=== PATIENT | male | born 1940 | race Caucasian/White ===

== ENCOUNTER 2024-06-15 20:03 | Emergency (ER) | payer OTHER, SELFPAY ==
[2024-06-15 20:10] VITALS: BP 153/59; PULSE 75; RESP 18; TEMP 36.6; O2SAT 100; BMI 23.9
--- NOTE | 2024-06-15 20:30 | EDS_ITS ---
HPI History of Present Illness Chief Complaint: Complaint Detail of Chief Complaint: Blocked Duarte catheter Informant: patient and family Narrative Narrative: Patient presents to the emergency department with a blocked Duarte catheter that he noted today. Patient states that he has a chronic indwelling Duarte and this 1 he has had for about 2 to 3 weeks. He had a TURP in December of this year and he has had Duarte catheters from time to time. Patient has history of prostate cancer. Today he has had some leakage around the catheter. His catheter has been blocked from time to time. Patient otherwise feels well. He denies any fevers or chills or sweats. He describes a mild pressure in the suprapubic region PFSH PFSH Allergy/AdvReac Type Severity Reaction Status Date / Time ciprofloxacin Allergy PT UNSURE Verified 06/15/24 20:09 OF REACTION clarithromycin (From Biaxin) Allergy PT UNSURE Verified 06/15/24 20:09 OF REACTION Penicillins Allergy Hives Verified 06/15/24 20:09 Surgical History (Updated 06/15/24 @ 20:24 by Manda Mcdonnell) S/P TURP Social History Smoking Status: Never smoker ROS ROS ED Review of Systems ROS Unobtainable: other Constitutional Constitutional ED: Reports lethargy; Denies chills, fever(s), sweats or weight loss Eyes Eyes: Denies blurry vision, change in vision or diplopia ENT ENT ED: Denies rhinorrhea or sore throat Cardiovascular Cardiovascular: Reports chest pain; Denies orthopnea or racing heartbeat Respiratory/Chest Respiratory/Chest: Denies cough, dyspnea, dyspnea on exertion, orthopnea or sputum Gastrointestinal Gastrointestinal: Denies abdominal pain, diarrhea, nausea or vomiting Genitourinary Genitourinary ED: Reports other Details: Blocked Duarte catheter ; Denies dysuria, hematuria or urinary frequency Musculoskeletal Musculoskeletal: Denies arthralgias, back pain, myalgias or neck pain Integumentary Denies abscess, Abrasions or rash Neurologic Neurologic: Denies headache(s) or weakness Psychiatric Psychiatric: Denies anxiety, depression or suicidal thoughts Endocrine Endocrinology: Denies polydipsia, polyphagia or polyuria Hematologic/Lymphatic Hematologic/Lymphatic: Denies easy bleeding, easy bruising or lymphadenopathy Allergic/Immunologic Allergic/Immunologic ED: Denies mouth swelling, tongue swelling or urticaria EXAM Physical Exam Const Vital Signs: 06/15/24 20:10 Temperature 97.8 F Temperature Source Temporal Pulse Rate 75 Respiratory Rate 18 Blood Pressure 153/59 H Blood Pressure Mean 90 Pulse Ox 100 Oxygen Delivery Method Room Air Positive well nourished and well developed General Appearance ED: well developed and NAD HEENT Reports TM's clear and moist mucous membranes normocephalic and atraumatic; Negative for trauma or tenderness Tympanic Membrane ED: Yes TM's clear Eyes PERRL and EOMs intact bilaterally General Eye ED: Negative for pale conjunctiva or scleral icterus Neck no lymphadenopathy, supple and no JVD General: Negative for tenderness Chest Wall inspection of chest normal and palpation of chest normal Chest: Negative for tenderness Resp normal respiratory effort and clear to auscultation bilaterally Effort and Inspection: Negative for respiratory distress or pain with movement Auscultation: Negative for rhonchi, wheezes or diminished lung sounds Cardio regular rate, regular rhythm, S1 normal heart sound, S2 normal heart sound and no murmurs Peripheral Pulses: pulses 2+ throughout GI normal to inspection, nondistended, normoactive bowel sounds, soft to palpation, non-tender, non-distended and no masses Narrative: Patient has a Duarte catheter in place transurethral. Patient has minimal amount of bloody urine in the bag. Back/Spine no CVA tenderness and no thoracic nor lumbar tenderness Extremity normal to inspection General Extremety ED: Negative for edema General Extremity: Negative for edema Neuro oriented x3, CN's II-XII intact bilaterally, no sensory deficits noted and gait normal Sensorium / Orientation: awake, alert, oriented to person, oriented to place and oriented to time Motor Exam: strength 5/5 throughout and strength abnormal Psych mental status grossly normal Skin no rashes or lesions noted and no wounds MDM MDM MDM Narrative Medical decision making narrative: Patient presents with a clogged Duarte catheter. We had the nursing staff flush the catheter and it was able to flush and irrigate without difficulty. Patient will be discharged to home. He is comfortable with plan. Patient is stage IV cancer and essentially receiving palliative care. Advised to return if unable to urinate or catheter is not draining or he leaks around the catheter. Discharged home stable condition. Discharge Plan Triage Chief Complaint: Complaint ED Provider: Dominic Castillo Dx/Rx/DC Orders Clinical Impression: Complication, blocked Duarte catheter Instructions: ED Duarte Catheter, Care, ED Urinary Retention, Male [facility] Provider[facility] Referrals: Roscoe Colindres MD [Non-Staff] - Activity Restrictions/Additional Instructions: Follow-up with your urologist at earliest convenience. Print Language: Wallisian Disposition Disposition: Home, Self Care
[2024-06-15 21:35] VITALS: BP 125/70; PULSE 74; RESP 15; TEMP 36.8; O2SAT 99
== END 2024-06-15 21:36 | disposition home or self-care (01) ==
PROVIDERS: Emergency Provider Emergency Medicine; Visit Provider Emergency Medicine
DX: T83.091A Other mechanical complication of indwelling urethral catheter, initial encounter (principal); C61 Malignant neoplasm of prostate; Z51.5 Encounter for palliative care; Z88.1 Allergy status to other antibiotic agents; Z88.0 Allergy status to penicillin
CPT/HCPCS: 99282; A4216

== ENCOUNTER 2024-06-25 14:34 | Inpatient (IN) | payer OTHER, SELFPAY ==
[2024-06-25] VITALS (10 sets, daily range): BP systolic 136–157; BP diastolic 54–63; PULSE 60–72; RESP 16–21; TEMP 36.4–37; O2SAT 98–100; BMI 23.1; BMI 20.5
--- NOTE | 2024-06-25 17:33 | EX.ED.DYSGE1 ---
HPI History of Present Illness Chief Complaint: Complaint Informant: patient and family Narrative Narrative: Patient is an 83-year-old male with history of metastatic prostate cancer, BPH status post TURP and December of this year, indwelling Duarte catheter secondary to urinary retention, UTIs and hyponatremia (chronically around 123-125 on salt pills) presenting with hematuria and decreased urine production. Patient switched to his leg bag this morning and noticed that there was not much urine coming out. Is also noticed was grossly bloody. Started feel pressure like urine is building up but not draining. Denies any other complaints or concerns at this time. Since last hospitalization has been living with family member and overall been doing well. [facility] Is on Eliquis. No other complaints or concerns reported at this time. PFSH PFSH Home Medications ?Medication ?Instructions ?Recorded ?Last Taken ?Type Unobtainable 06/25/24 Unknown History Allergy/AdvReac Type Severity Reaction Status Date / Time ciprofloxacin Allergy PT UNSURE Verified 06/25/24 14:37 OF REACTION clarithromycin (From Biaxin) Allergy PT UNSURE Verified 06/25/24 14:37 OF REACTION Penicillins Allergy Hives Verified 06/25/24 14:37 Surgical History S/P TURP Social History Smoking Status: Never smoker ROS ROS ED Constitutional Constitutional ED: Reports other Details: Generalized weakness, chronic and unchanged ; Denies chills or fever(s) Gastrointestinal Gastrointestinal: Reports abdominal pain and other Details: Suprapubic pressure ; Denies nausea or vomiting Genitourinary Genitourinary ED: Reports hematuria and other Details: Duarte catheter malfunction?urine not draining Integumentary Denies rash Neurologic Neurologic: Reports weakness Hematologic/Lymphatic Hematologic/Lymphatic: Reports easy bleeding, easy bruising and other Details: On Eliquis EXAM Physical Exam Const Vital Signs: 06/25/24 14:37 06/25/24 18:35 Temperature 97.5 F L Temperature Source Temporal Pulse Rate 61 60 Respiratory Rate 18 18 Blood Pressure 136/63 H 157/54 H Blood Pressure Mean 87 88 Pulse Ox 100 99 Oxygen Delivery Method Room Air Room Air Positive well nourished and well developed General Appearance ED: well developed and NAD HEENT Reports moist mucous membranes Eyes PERRL and EOMs intact bilaterally General Eye ED: Negative for pale conjunctiva Chest Wall inspection of chest normal Resp normal respiratory effort and clear to auscultation bilaterally Cardio regular rate and regular rhythm GI normal to inspection, nondistended, normoactive bowel sounds and non-tender GI Narrative: Mild suprapubic tenderness Narrative: Duarte catheter in place. No drainage of urine at this time. Small amount of urine at the bedside is grossly bloody. Extremity normal to inspection Psych mental status grossly normal Skin no rashes or lesions noted and no wounds MDM MDM MDM Narrative Medical decision making narrative: Patient evaluated for Duarte catheter malfunction. Patient having gross blood from his Duarte. He is on Eliquis for heart problems. He is not sure if he has a history of atrial fibrillation. Does not think he has a history of any blood clots. Attempted to irrigate Duarte catheter however this was unsuccessful and there was a lot amount of clots. Three-way irrigation initiated and the urine did start to clear. Patient however is noted to have a hemoglobin of 6.6. Family over the bedside states that his hemoglobin was 7.1 when they were discharged from [facility] the end of May. He has never had a blood transfusion before. Patient was started IV Rocephin as I suspect he could have an underlying UTI that is causing his hematuria. Is likely worsened by the fact that he has this Duarte catheter. Will be transfused 1 unit of blood and admitted for further monitoring. Patient and family agreeable plan of care. Case discussed with hospitalist, Dr. Ralph. Lab Data Labs: Laboratory Results - last 24 hr 06/25/24 06/25/24 06/25/24 17:35 18:19 19:29 WBC 7.6 RBC 2.50 L Hgb 6.6 L Hct 21.6 L MCV 86.4 MCH 26.4 L MCHC 30.6 L RDW Std Deviation 50.2 H RDW Coeff of Jerry 16.0 H Plt Count 260 MPV 9.4 Immature Gran % (Auto) 0.300 Neut % (Auto) 79.9 H Lymph % (Auto) 11.8 L [place] % (Auto) 6.8 Eos % (Auto) 0.9 Baso % (Auto) 0.3 Absolute Neuts (auto) 6.1 Absolute Lymphs (auto) 0.90 Nucleated RBC % 0 Sodium 138 Potassium 3.6 Chloride 103 Carbon Dioxide 30.0 Anion Gap 5 BUN 18 Creatinine 1.08 Estim Creat Clear Calc 54.23 Est GFR (MDRD) Af Amer 84 Est GFR (MDRD) Non-Af 69 BUN/Creatinine Ratio 16.7 Glucose 90 Calcium 8.7 Iron 14 L TIBC 240 L Iron Saturation 5.8 L Ferritin 239 Folate 25.80 Urine Color Red Urine Clarity Turbid Urine pH 7.0 Ur Specific [place] 1.010 Urine Protein 500 H Urine Glucose (UA) Normal Urine Ketones Negative Urine Occult Blood 250 H Urine Nitrite Negative Urine Bilirubin Negative Urine Urobilinogen Normal Ur Leukocyte Esterase 25 H Urine RBC > 100 SEEN Urine WBC 5-10 SEEN Ur Squamous Epith Cells 0 SEEN Urine Bacteria 1+ Urine Mucus 0 SEEN Blood Type A NEGATIVE Antibody Screen NEGATIVE Crossmatch See Detail Discharge Plan Dx/Rx/DC Orders Clinical Impression: Acute blood loss anemia, UTI (urinary tract infection) due to urinary indwelling Duarte catheter, Acute cystitis with hematuria Disposition Disposition: Acute Care [facility] Discharge Date/Time: 06/25/24 22:30
[2024-06-25 17:58] LABS: Absolute Neutrophil Count 6.1 X10^3/uL (2.0-7.7); Basophil# 0.02 X10^3/uL; Basophil% 0.3 % (0-1); Eosinophil# 0.07 X10^3/uL; Eosinophils% 0.9 % (0-5); Hematocrit 21.6 % (40-54); Hemoglobin 6.6 g/dL (13.0-16.5); Lymphocyte % 11.8 % (19-41); Mean Corp Hgb Conc 30.6 g/dL (32-36); Mean Corpuscular Hgb 26.4 pg (27.0-32.0); Mean Corpuscular Volume 86.4 fL (80-94); Mean Platelet Vol. 9.4 fl (6.2-12.0); Monocyte# 0.52 X10^3/uL; Monocyte% 6.8 % (0-10); NRBC Flagged by Analyzer 0 % (0-5); Neutrophil # 6.11 X10^3/uL (2.7-7.7); Neutrophil % 79.9 % (47-70); Platelet Count 260 K/mm3 (150-450); RBC Distribution Width SD 50.2 fl (35.1-43.9); White Blood Count 7.6 K/mm3 (4.4-11.0)
[2024-06-25 18:15] LABS: Anion Gap 5 (5-15); BUN 18 mg/dL (7-18); BUN/Creat Ratio 16.7 RATIO (10-20); Calcium,Total 8.7 mg/dL (8.5-10.1); Chloride 103 mmol/L (98-107); Creatinine, Serum 1.08 mg/dL (0.70-1.30); EST Glomerular Filtration Rate 69 mL/min (>60); Est Glom Filt Rate - Afr Amer 84 mL/min (>60); Estimated Creatinine Clearance 54.23 ml/min; Glucose 90 mg/dL (74-106); Potassium 3.6 mmol/L (3.5-5.1); Sodium Level 138 mmol/L (136-145)
[2024-06-25 18:23] LABS: Mucous, Urine 0 SEEN /hpf (<or=2+); Squamous Epithelial Cells - UA 0 SEEN /hpf (0-5)
[2024-06-25 18:25] LABS: Color, Urine Red (Yellow); Glucose, Dipstick Normal (Normal); Ketone-Dipstick Negative (Negative); Leukocyte Esterase-Dipstick 25 /ul (Negative); Nitrite-Dipstick Negative (Negative); Occult Blood-Urine 250 /ul (Negative); Protein-Dipstick 500 mg/dl (Negative); Urine Bilirubin Dipstick Negative (Negative); Urine Clarity Turbid (Clear); Urine Urobilinogen Normal (Normal)
[2024-06-25 18:36] LABS: Red Blood Cells-Urine > 100 SEEN /hpf (0-5); White Blood Cells 5-10 SEEN /hpf (0-5)
[2024-06-25 18:38] LABS: Bacteria 1+ /hpf (None Seen)
--- NOTE | 2024-06-25 20:48 | HP.PCM.HOS_ITS ---
HPI - General General Date of Admission: 06/25/24 Date of Service: 06/25/24 Chief Complaint: Blood in Urine with Decreased UOP and Suprapubic Pain. HPI Narrative SAE POWER, is a 83 M with a past medical history of essential hypertension, hyperlipidemia, CAD; s/p CABG, BPH; s/p TURP, history of metastatic prostate cancer to bone, chronic urinary retention; with chronic indwelling Duarte that causes frequent UTI's, listed allergies to Cipro, PCN and Biaxin, chronic hyponatremia; with baseline from 123-125 mmol/L on supplemental salt pills with recent admission to a local hospital for this issue complicated by generalized weakness causing him to stay with a relative since his discharge from that facility, suspected history of atrial fibrillation; on Eliquis and OA who primarily receives his care through the [facility] presents to [facility] ER complaining of blood in urine with decreased urinary output and suprapubic pain. Ms. Power reports his symptoms began earlier this morning after he switched to his leg bag when he subsequently noted decreased urine with grossly bloody urine. He then started to feel a progressively worsening pressure-sensation in his lower abdomen like he could not fully empty his bladder so he decided to come in for further evaluation and treatment. He denies associated fever, chills, nausea, vomiting, diarrhea, constipation, chest pain, SOB or headache. In the ER he was noted to a UA positive for Acute Cystitis; with hematuria likely due to Adverse Drug Reaction to Eliquis complicated by Severe Acute Blood Loss Anemia of 6.6 g/dL present on admission requiring transfusion compounded by Acute Urinary Retention due to Clots requiring 3-way catheter placement with CBI and he was then admitted to the PCU for ongoing care for a stay that is expected to extend beyond 2 midnights. [facility] Home Medications ?Medication ?Instructions ?Recorded ?Last Taken ?Type Unobtainable 06/25/24 Unknown History Allergy/AdvReac Type Severity Reaction Status Date / Time ciprofloxacin Allergy PT UNSURE Verified 06/25/24 14:37 OF REACTION clarithromycin (From Biaxin) Allergy PT UNSURE Verified 06/25/24 14:37 OF REACTION Penicillins Allergy Hives Verified 06/25/24 14:37 Surgical History S/P TURP Social History Smoking Status: Never smoker ROS ROS Narrative Review of Systems: Constitutional: Patient denies fever or chills. Eyes: Patient denies changes in vision or discharge from eyes. ENT: Patient denies runny nose, sore throat or ear pain. Resp: Patient denies SOB or cough. CV: Patient denies chest pain, palpitations or heart racing. GI: Patient admits to abdominal pain but he denies nausea, vomiting, diarrhea or constipation. : Patient admits to grossly bloody urine and suprapubic pain due to increased pressure from inability to empty his bladder that is better after CBI. MSK: Patient denies arthralgias or myalgias. Skin: Patient denies rash, abscess or jaundice. Psych: Patient denies symptoms of uncontrolled depression or anxiety. Neuro: Patient denies headache, paresthesias or focal neurologic deficits. Allergy: Patient denies lip swelling, tongue swelling or urticaria. Hematology: Patient admits to blood in urine with easy bleeding noted on Eliquis. Endocrinology: Patient denies polyuria, polydipsia or polyphagia. 14 point ROS otherwise negative except for positives noted above in HPI. Vital Signs Vital Signs Vital Signs: 06/25/24 14:37 06/25/24 18:35 Temperature 97.5 F L Temperature Source Temporal Pulse Rate 61 60 Respiratory Rate 18 18 Blood Pressure 136/63 H 157/54 H Blood Pressure Mean 87 88 Pulse Ox 100 99 Oxygen Delivery Method Room Air Room Air Weight Weight: 166 lb Body Mass Index (BMI) 23.1 Physical Exam Const alert, oriented x3, no apparent distress and average body habitus General Appearance: cooperative HEENT normocephalic, head/scalp atraumatic, hearing grossly normal bilaterally and moist oral mucous membranes Eyes PERRL and EOMs intact bilaterally Neck no lymphadenopathy and supple Resp normal respiratory effort, no retractions, no use of accessory muscles and clear to auscultation bilaterally Cardio regular rate and regular rhythm GI normal to inspection, nondistended, normoactive bowel sounds, soft to palpation and non-distended GI Narrative: Mild TTP in the suprapubic region. Extremity normal to inspection, full ROM and no clubbing, cyanosis or edema Skin Skin Narrative: Patient has no evidence of rash, abscess or jaundice. Neuro oriented x3, CN's II-XII intact bilaterally, moves all extremities and no focal motor deficits Sensorium / Orientation: awake, alert, oriented to person, oriented to place and oriented to time Speech: speech normal Psych affect normal Results Medical Records Data Attestation: I reviewed the patient's medical records Lab / Micro Data Attestation: I reviewed the patient's lab results. 06/26/24 04:25 06/25/24 17:35 Labs: Laboratory Results - last 24 hr 06/25/24 17:35: WBC 7.6, RBC 2.50 L, Hgb 6.6 L, Hct 21.6 L, MCV 86.4, MCH 26.4 L , MCHC 30.6 L, RDW Std Deviation 50.2 H, RDW Coeff of Jerry 16.0 H, Plt Count 260, MPV 9.4, Immature Gran % (Auto) 0.300, Neut % (Auto) 79.9 H, Lymph % (Auto) 11.8 L, [place] % (Auto) 6.8, Eos % (Auto) 0.9, Baso % (Auto) 0.3, Absolute Neuts (auto) 6.1, Absolute Lymphs (auto) 0.90, Nucleated RBC % 0, Sodium 138, Potassium 3.6, Chloride 103, Carbon Dioxide 30.0, Anion Gap 5, BUN 18, Creatinine 1.08, Estim Creat Clear Calc 54.23, Est GFR (MDRD) Af Amer 84, Est GFR (MDRD) Non-Af 69, BUN/Creatinine Ratio 16.7, Glucose 90, Calcium 8.7 06/25/24 18:19: Urine Color Red, Urine Clarity Turbid, Urine pH 7.0, Ur Specific [place] 1.010, Urine Protein 500 H, Urine Glucose (UA) Normal, Urine Ketones Negative, Urine Occult Blood 250 H, Urine Nitrite Negative, Urine Bilirubin Negative, Urine Urobilinogen Normal, Ur Leukocyte Esterase 25 H, Urine RBC > 100 SEEN, Urine WBC 5-10 SEEN, Ur Squamous Epith Cells 0 SEEN, Urine Bacteria 1+, Urine Mucus 0 SEEN 06/25/24 19:29: Blood Type A NEGATIVE, Antibody Screen NEGATIVE, Crossmatch See Detail Assessment & Plan Assessment/Plan (1) Acute cystitis with hematuria: (2) UTI (urinary tract infection) due to urinary indwelling Duarte catheter: QUALIFIERS: Encounter type: initial encounter Indwelling urinary catheter type: indwelling urethral catheter Qualified Code(s): T83.511A - Infection and inflammatory reaction due to indwelling urethral catheter, initial encounter; N39.0 - Urinary tract infection, site not specified (3) Adverse drug reaction: QUALIFIERS: Encounter type: initial encounter Qualified Code(s): T50.905A - Adverse effect of unspecified drugs, medicaments and biological substances, initial encounter (4) Acute blood loss anemia: (5) Urinary retention with incomplete bladder emptying: (6) History of BPH: (7) History of transurethral resection of prostate: PLAN: Plan 1. Acute Cystitis; with hematuria due to Chronic Duarte with listed allergies to Cipro, PCN and Biaxin - Admit to PCU. Resume IV Rocephin begun in the ER and await culture and sensitivity data. Give Tylenol prn for [id number] (level 1-5/10) pain or fever. Give IV Morphine prn for severe (level 6-10/10) pain. 2. Adverse Drug Reaction to Eliquis precipitating #1 - Hold Eliquis until further notice as at this point the risks outweigh the potential benefit. 3. Severe Acute Blood Loss Anemia of 6.6 g/dL present on admission requiring transfusion arising from #1 & #2 - Transfuse one unit of PRBC's and then recheck CBC in AM to ensure improvement. Hemoccult stools and check iron studies, ferritin, B12 and Folate with previous history of anemia and multiple potential vectors for anemia. 4. Acute Urinary Retention due to Clots requiring 3-way catheter placement with CBI complicating #1 - #3 - Continue CBI begun in ER and stop once hematuria resolves. Finally, we will consult urology to see this patient on-rounds in the AM for further recommendations with help appreciated in advance. 5. BPH; s/p TURP along with history of metastatic prostate cancer to bone causing chronic urinary retention; with chronic indwelling Duarte that causes frequent UTI's adding to the medical complexity of #1 - #4 - Noted. 6. History of Chronic Hyponatremia; with baseline from 123-125 mmol/L on supplemental salt pills with recent admission to a local hospital for this issue complicated by generalized weakness causing him to stay with a relative since his discharge from that facility - Stable with serum sodium of 138 mmol/L present on admission. PT/OT and Case Management to consult and treat. 7. Essential hypertension - Hold scheduled antihypertensives until bleeding has resolved. 8. Hyperlipidemia - Resume statin as previous. 9. CAD; s/p CABG - Noted. 10. Suspected history of atrial fibrillation; on Eliquis - Hold Elquis as outlined above. 11. OA - Stable. 12. DVT prophylaxis - SCD's only with active hematuria. Total time: Approximately (but not less than) 75 minutes. Charges/Coding Visit Charges Inpatient E&M: 57550 Init Hosp L3
[2024-06-25] MEDS: Ceftriaxone 1 GM/50 ML BAG IV (21:57)
[2024-06-26 00:06] LABS: Ferritin 239 ng/mL (26-388); Iron 14 ug/dL (65-175); Iron Binding Capacity,Total 240 ug/dL (250-450); PERCENT IRON SATURATION 5.8 % (15.0-55.0)
[2024-06-26] MEDS: 0.9% Normal Saline (1000mL) 1,000 ML 50 ML IV (00:18)
[2024-06-26] MEDS: Lactobacillis Acidophilus 1 CAP PO ×4 (00:18→21:50)
[2024-06-26 05:08] VITALS: BP 146/50; PULSE 60; RESP 16; TEMP 36.9; O2SAT 100
[2024-06-26 05:50] LABS: Absolute Neutrophil Count 6.4 X10^3/uL (2.0-7.7); Basophil# 0.02 X10^3/uL; Basophil% 0.2 % (0-1); Eosinophil# 0.08 X10^3/uL; Hematocrit 22.3 % (40-54); Hemoglobin 7.1 g/dL (13.0-16.5); Lymphocyte % 14.4 % (19-41); Mean Corp Hgb Conc 31.8 g/dL (32-36); Mean Corpuscular Hgb 27.3 pg (27.0-32.0); Mean Corpuscular Volume 85.8 fL (80-94); Mean Platelet Vol. 9.4 fl (6.2-12.0); Monocyte# 0.56 X10^3/uL; Monocyte% 6.7 % (0-10); NRBC Flagged by Analyzer 0 % (0-5); Neutrophil # 6.44 X10^3/uL (2.7-7.7); Neutrophil % 77.2 % (47-70); Platelet Count 254 K/mm3 (150-450); RBC Distribution Width CV 15.8 % (11.6-14.6); RBC Distribution Width SD 48.9 fl (35.1-43.9); White Blood Count 8.3 K/mm3 (4.4-11.0)
[2024-06-26 07:06] LABS: ALB/GLOB Ratio 0.6 RATIO (0.9-2.4); AST(SGOT) 29 U/L (15-37); Alanine Aminotransfer ALT/SGPT 17 U/L (16-61); Albumin, Serum 2.2 g/dL (3.2-5.0); Alkaline Phosphatase 79 U/L (45-117); Anion Gap 5 (5-15); BUN 17 mg/dL (7-18); BUN/Creat Ratio 16.3 RATIO (10-20); Calcium,Total 8.4 mg/dL (8.5-10.1); Chloride 104 mmol/L (98-107); Creatinine, Serum 1.04 mg/dL (0.70-1.30); EST Glomerular Filtration Rate 72 mL/min (>60); Est Glom Filt Rate - Afr Amer 87 mL/min (>60); Estimated Creatinine Clearance 49.88 ml/min; Globulin 3.8 g/dL (2.2-4.2); Glucose 84 mg/dL (74-106); Magnesium 2.1 mg/dL (1.6-2.6); Phosphorus 3.1 mg/dL (2.5-4.9); Potassium 3.6 mmol/L (3.5-5.1); Sodium Level 138 mmol/L (136-145)
[2024-06-26 08:54] LABS: Vitamin B12 406 pg/mL (211-911)
[2024-06-26 09:37] VITALS: BP 121/50; PULSE 66; RESP 16; TEMP 36.8; O2SAT 99
--- NOTE | 2024-06-26 10:00 | CASEMGMT ---
RN CM Face to Face with patient for initial transition planning/care coordination assessment. RN CM introduced self and role at [facility]. Patient lying in bed, alert and oriented, daughter in law at bedside. Patient willing to participate in assessment and is able to answer all questions appropriately. Care providers, pharmacy, and demographics verified. Strata: 1 PCP: Mirta Man; Waylon Colindres Specialists: Pamella Mitchell [facility]; Preferred [facility]acy: [facility] Insurance: [facility], [place] Prescription Benefit: yes Living Will/HPOA: yes, stacey Power LNOK: sons, HARRY Living Arrangements: Patient is staying with son and DIL in a tri-level home with 8 steps and railing between levels. Patient is independent and able ambulate stairs. Transportation: DIL, son DME/HHC: Patient has shower chair, cane, walker. Patient is active with [facility]. Daughter and patient interested in palliative consult, hospitalist updated and order received for consult. Patient [facility] Patient states he has no further needs or concerns at this time. CM to follow for discharge planning needs that may arise. Disposition Plan: Patient to discharge home with resumption of HHC, family support, and follow-up plans in place. Anette MARCELO, RN, CM
--- NOTE | 2024-06-26 10:23 | PN.HOSP_ITS ---
Subjective Subjective Doing well urine looks like he might be clearing up a little. Hemoglobin today 7.1 after unit of blood Objective Data Objective Data Vital Signs: Vital Signs Temp Pulse Resp BP Pulse Ox O2 Del Method 98.3 F 66 16 121/50 H 99 Room Air 06/26/24 09:37 06/26/24 09:37 06/26/24 09:37 06/26/24 09:37 06/26/24 09:37 06/26/24 09:37 Oxygen Delivery Method Room Air Weight: 165 lb 15.988 oz Body Mass Index (BMI) 20.5 Intake & Output: Intake and Output for Last 24 Hours 06/25/24 06/26/24 06/27/24 03:59 03:59 03:59 Intake Total 550 / 550 Output Total 1800 / 1800 9000 / 9000 Balance -1250 / -1250 -9000 / -9000 Lab / Micro Data 06/26/24 04:25 06/26/24 04:25 Labs: Laboratory Results - last 24 hr 06/25/24 17:35: WBC 7.6, RBC 2.50 L, Hgb 6.6 L, Hct 21.6 L, MCV 86.4, MCH 26.4 L , MCHC 30.6 L, RDW Std Deviation 50.2 H, RDW Coeff of Jerry 16.0 H, Plt Count 260, MPV 9.4, Immature Gran % (Auto) 0.300, Neut % (Auto) 79.9 H, Lymph % (Auto) 11.8 L, [place] % (Auto) 6.8, Eos % (Auto) 0.9, Baso % (Auto) 0.3, Absolute Neuts (auto) 6.1, Absolute Lymphs (auto) 0.90, Nucleated RBC % 0, Sodium 138, Potassium 3.6, Chloride 103, Carbon Dioxide 30.0, Anion Gap 5, BUN 18, Creatinine 1.08, Estim Creat Clear Calc 54.23, Est GFR (MDRD) Af Amer 84, Est GFR (MDRD) Non-Af 69, BUN/Creatinine Ratio 16.7, Glucose 90, Calcium 8.7, Iron 14 L, TIBC 240 L, Iron Saturation 5.8 L, Ferritin 239, Folate 25.80 06/25/24 18:19: Urine Color Red, Urine Clarity Turbid, Urine pH 7.0, Ur Specific [place] 1.010, Urine Protein 500 H, Urine Glucose (UA) Normal, Urine Ketones Negative, Urine Occult Blood 250 H, Urine Nitrite Negative, Urine Bilirubin Negative, Urine Urobilinogen Normal, Ur Leukocyte Esterase 25 H, Urine RBC > 100 SEEN, Urine WBC 5-10 SEEN, Ur Squamous Epith Cells 0 SEEN, Urine Bacteria 1+, Urine Mucus 0 SEEN 06/25/24 19:29: Blood Type A NEGATIVE, Antibody Screen NEGATIVE, Crossmatch See Detail 06/26/24 04:25: WBC 8.3, RBC 2.60 L, Hgb 7.1 L, Hct 22.3 L, MCV 85.8, MCH 27.3, MCHC 31.8 L, RDW Std Deviation 48.9 H, RDW Coeff of Jerry 15.8 H, Plt Count 254, MPV 9.4, Immature Gran % (Auto) 0.500, Neut % (Auto) 77.2 H, Lymph % (Auto) 14.4 L, [place] % (Auto) 6.7, Eos % (Auto) 1.0, Baso % (Auto) 0.2, Absolute Neuts (auto) 6.4, Absolute Lymphs (auto) 1.20, Nucleated RBC % 0, Sodium 138, Potassium 3.6, Chloride 104, Carbon Dioxide 29.0, Anion Gap 5, BUN 17, Creatinine 1.04, Estim Creat Clear Calc 49.88, Est GFR (MDRD) Af Amer 87, Est GFR (MDRD) Non-Af 72, BUN/Creatinine Ratio 16.3, Glucose 84, Calcium 8.4 L, Phosphorus 3.1, Magnesium 2.1, Total Bilirubin 0.50, AST 29, ALT 17, Alkaline Phosphatase 79, Total Protein 6.0 L, Albumin 2.2 L, Globulin 3.8, Albumin/Globulin Ratio 0.6 L, Vitamin B12 406, TSH 1.620 Micro: Microbiology 06/25/24 18:19 Urine, Catheterized Urine Culture - Preliminary GPC Poss Enterococcus sp Physical Exam Narrative General: Alert, Oriented x3, Cooperative, No apparent distress HEENT: Atraumatic, PERRLA, EOMI, Normocephalic Oral: Moist Mucosa Neck: Supple, No JVD Lungs: Diminished, Normal air movement, No rhonchi, No wheeze, No rales Cardiovascular: Regular rate, Regular Rhythm, Normal S1, Normal S2, No murmurs Abdomen: Soft, Non Tender, Non-Distended, No Hepato-splenomegaly, Duarte with hematuria Extremities: No edema, Capillary Refill Less than 3 Seconds Skin: No rashes, No breakdown Musculoskeletal: No Tenderness to Palpation of Joints or Extremities Neurological: No focal neurological deficits, Motor Exam 5/5 strength throughout, Sensory exam intact to light touch and pain Psych/Mental Status: Normal Affect, Appropriate Assessment & Plan Assessment/Plan (1) UTI (urinary tract infection) due to urinary indwelling Duarte catheter: QUALIFIERS: Indwelling urinary catheter type: indwelling urethral catheter Encounter type: initial encounter Qualified Code(s): T83.511A - Infection and inflammatory reaction due to indwelling urethral catheter, initial encounter; N39.0 - Urinary tract infection, site not specified (2) Acute blood loss anemia: PLAN: Plan 1. Acute cystitis with hematuria blood loss anemia secondary to a chronic Duarte due to history of a TURP and urinary retention with BPH and a history of metastatic prostate cancer ? He has a urologist at the [place] as well as a urologist at [facility] ? Continue with Rocephin for possible UTI ? Urine cultures pending ? Continue with continuous bladder irrigation ? Unfortunately we do not have urology coverage ? He did receive a unit of blood overnight went from 6.6-7.1, will recheck this afternoon ? Hematuria is worsened by his use of Eliquis 2. Essential HTN/HLD/CAD status post CABG/history of A-fib ? Will hold his Eliquis secondary to his anemia and hematuria ? His blood pressure medications were held on admission secondary to his hematuria, no signs of hypotension can restart if he becomes hypertensive ? Will monitor and make adjustments as necessary DVT: SCDs Charges/Coding Visit Charges Inpatient E&M: 60794 Subs Hosp L2
[2024-06-26 12:31] LABS: Absolute Lymphocyte Count 0.78 X10^3/uL (0.83-4.51); Absolute Neutrophil Count 6.3 X10^3/uL (2.0-7.7); Basophil# 0.03 X10^3/uL; Basophil% 0.4 % (0-1); Eosinophil# 0.11 X10^3/uL; Eosinophils% 1.4 % (0-5); Hematocrit 23.8 % (40-54); Hemoglobin 7.3 g/dL (13.0-16.5); Lymphocyte # 0.78 X10^3/ul (0.83-4.51); Mean Corp Hgb Conc 30.7 g/dL (32-36); Mean Corpuscular Hgb 26.7 pg (27.0-32.0); Mean Corpuscular Volume 87.2 fL (80-94); Mean Platelet Vol. 9.1 fl (6.2-12.0); Monocyte# 0.53 X10^3/uL; Monocyte% 6.8 % (0-10); NRBC Flagged by Analyzer 0 % (0-5); Neutrophil # 6.32 X10^3/uL (2.7-7.7); Platelet Count 259 K/mm3 (150-450); RBC Distribution Width CV 15.9 % (11.6-14.6); RBC Distribution Width SD 50.4 fl (35.1-43.9); Red Blood Count 2.73 M/mm3 (4.6-6.2); White Blood Count 7.8 K/mm3 (4.4-11.0)
--- NOTE | 2024-06-26 14:29 | CASEMGMT ---
Discharge Planning Resumption HH referral sent via [facility] to [facility]. Rossana Nelson DC Planning Asst.
[2024-06-26 15:11] VITALS: BP 144/59; PULSE 59; RESP 12; TEMP 36.3; O2SAT 100
--- NOTE | 2024-06-26 16:12 | CASEMGMT ---
Palliative screening tool completed, order received and consult sent to [email or web address] palliative via email.
[2024-06-26 21:30] VITALS: BP 175/70; PULSE 60; RESP 16; TEMP 36.6; O2SAT 98
[2024-06-26] MEDS: Ceftriaxone 1 GM/50 ML BAG IV (21:50)
[2024-06-26] MEDS: Ensure Plus High Protein 120 ML LIQUID PO (21:50)
[2024-06-26 23:20] VITALS: BP 175/70; PULSE 60
[2024-06-26] MEDS: hydrALAZINE 20 MG/ML Vial 10 MG IV (23:20)
[2024-06-27] VITALS (10 sets, daily range): BP systolic 139–167; BP diastolic 60–69; PULSE 60–74; RESP 16–18; TEMP 36.3–37.1; O2SAT 98–100; BMI 23.6
[2024-06-27 05:36] LABS: Absolute Lymphocyte Count 1.04 X10^3/uL (0.83-4.51); Absolute Neutrophil Count 4.7 X10^3/uL (2.0-7.7); Basophil# 0.03 X10^3/uL; Basophil% 0.5 % (0-1); Eosinophil# 0.18 X10^3/uL; Eosinophils% 2.8 % (0-5); Hematocrit 22.4 % (40-54); Lymphocyte # 1.04 X10^3/ul (0.83-4.51); Mean Corp Hgb Conc 31.3 g/dL (32-36); Mean Corpuscular Hgb 26.8 pg (27.0-32.0); Mean Corpuscular Volume 85.8 fL (80-94); Mean Platelet Vol. 9.5 fl (6.2-12.0); Monocyte# 0.49 X10^3/uL; Monocyte% 7.6 % (0-10); NRBC Flagged by Analyzer 0 % (0-5); Neutrophil # 4.72 X10^3/uL (2.7-7.7); Neutrophil % 72.6 % (47-70); Platelet Count 261 K/mm3 (150-450); RBC Distribution Width CV 15.9 % (11.6-14.6); RBC Distribution Width SD 49.1 fl (35.1-43.9); Red Blood Count 2.61 M/mm3 (4.6-6.2); White Blood Count 6.5 K/mm3 (4.4-11.0)
[2024-06-27 06:16] LABS: Anion Gap 5 (5-15); BUN 15 mg/dL (7-18); BUN/Creat Ratio 16.8 RATIO (10-20); Calcium,Total 8.5 mg/dL (8.5-10.1); Chloride 105 mmol/L (98-107); Creatinine, Serum 0.89 mg/dL (0.70-1.30); EST Glomerular Filtration Rate 86 mL/min (>60); Est Glom Filt Rate - Afr Amer 104 mL/min (>60); Estimated Creatinine Clearance 65.81 ml/min; Glucose 88 mg/dL (74-106); Phosphorus 3.1 mg/dL (2.5-4.9); Potassium 3.5 mmol/L (3.5-5.1); Sodium Level 137 mmol/L (136-145)
[2024-06-27] MEDS: Ensure Plus High Protein 120 ML LIQUID PO ×4 (08:09→21:04)
[2024-06-27] MEDS: Lactobacillis Acidophilus 1 CAP PO ×4 (08:09→21:04)
--- NOTE | 2024-06-27 09:16 | PN.HOSP_ITS ---
Reason for Visit Reason for Visit: Diagnoses Acute posthemorrhagic anemia (06/25/24) Acute cystitis with hematuria (06/25/24) Urinary tract infection, site not specified (06/25/24) Retention of urine, unspecified (06/25/24) Adverse effect of unspecified drugs, medicaments and biological substances, initial encounter (06/25/24) Infection and inflammatory reaction due to indwelling urethral catheter, initial encounter (06/25/24) Personal history of other diseases of male genital organs (06/25/24) Acquired absence of other genital organ(s) (06/25/24) Other specified postprocedural states (06/25/24) Subjective Subjective Patient is an 83-year-old gentleman with history of chronic indwelling Duarte catheter admitted with hematuria found to have acute cystitis. Objective Data Objective Data Vital Signs: Vital Signs Temp Pulse Resp BP Pulse Ox O2 Del Method 98.4 F 60 18 167/68 H 100 Room Air 06/27/24 07:47 06/27/24 07:47 06/27/24 07:47 06/27/24 07:47 06/27/24 07:47 06/27/24 07:52 Oxygen Delivery Method Room Air Weight: 76.6 kg Body Mass Index (BMI) 23.6 Intake & Output: Intake and Output for Last 24 Hours 06/25/24 06/26/24 06/27/24 23:59 23:59 23:59 Intake Total 550 / 550 1050 / 1050 Output Total 1800 / 1800 9000 / 49672 17939 / 22831 Balance -1250 / -1250 -7950 / -17305 -70843 / -19498 Lab / Micro Data 06/27/24 04:12 06/27/24 04:12 Labs: Laboratory Results - last 24 hr 06/25/24 18:19: Urine Color Red, Urine Clarity Turbid, Urine pH 7.0, Ur Specific [place] 1.010, Urine Protein 500 H, Urine Glucose (UA) Normal, Urine Ketones Negative, Urine Occult Blood 250 H, Urine Nitrite Negative, Urine Bilirubin Negative, Urine Urobilinogen Normal, Ur Leukocyte Esterase 25 H, Urine RBC > 100 SEEN, Urine WBC 5-10 SEEN, Ur Squamous Epith Cells 0 SEEN, Urine Bacteria 1+, Urine Mucus 0 SEEN 06/26/24 11:58: WBC 7.8, RBC 2.73 L, Hgb 7.3 L, Hct 23.8 L, MCV 87.2, MCH 26.7 L , MCHC 30.7 L, RDW Std Deviation 50.4 H, RDW Coeff of Jerry 15.9 H, Plt Count 259, MPV 9.1, Immature Gran % (Auto) 0.400, Neut % (Auto) 81.0 H, Lymph % (Auto) 10.0 L, [place] % (Auto) 6.8, Eos % (Auto) 1.4, Baso % (Auto) 0.4, Absolute Neuts (auto) 6.3, Absolute Lymphs (auto) 0.78 L, Nucleated RBC % 0 06/27/24 04:12: WBC 6.5, RBC 2.61 L, Hgb 7.0 L, Hct 22.4 L, MCV 85.8, MCH 26.8 L , MCHC 31.3 L, RDW Std Deviation 49.1 H, RDW Coeff of Jerry 15.9 H, Plt Count 261, MPV 9.5, Immature Gran % (Auto) 0.500, Neut % (Auto) 72.6 H, Lymph % (Auto) 16.0 L, [place] % (Auto) 7.6, Eos % (Auto) 2.8, Baso % (Auto) 0.5, Absolute Neuts (auto) 4.7, Absolute Lymphs (auto) 1.04, Nucleated RBC % 0, Sodium 137, Potassium 3.5, Chloride 105, Carbon Dioxide 27.0, Anion Gap 5, BUN 15, Creatinine 0.89, Estim Creat Clear Calc 65.81, Est GFR (MDRD) Af Amer 104, Est GFR (MDRD) Non-Af 86, BUN/Creatinine Ratio 16.8, Glucose 88, Calcium 8.5, Phosphorus 3.1, Magnesium 2.0 Micro: Microbiology 06/25/24 18:19 Urine, Catheterized Urine Culture - Final Enterococcus faecalis Physical Exam Narrative GENERAL: cooperative HEENT: Atraumatic; normocephalic EYES; Anicteric, Normal Conjunctiva NECK; supple, normal thyroid, RESPIRATORY: Diminished to auscultation CARDIOVASCULAR: Regular S1 S2, GI: soft, normoactive bowel sounds, : Indwelling Duarte catheter with CBI in place EXTREMITIES: No edema, no clubbing, MUSCULOSKELETAL: no muscle wasting NEURO: Awake; no lateralizing signs. SKIN: No Rash PSYCH; Flat affect Assessment & Plan Assessment/Plan (1) UTI (urinary tract infection) due to urinary indwelling Duarte catheter: QUALIFIERS: Encounter type: initial encounter Indwelling urinary catheter type: indwelling urethral catheter Qualified Code(s): T83.511A - Infection and inflammatory reaction due to indwelling urethral catheter, initial encounter; N39.0 - Urinary tract infection, site not specified (2) Acute blood loss anemia: PLAN: Plan Patient is an 83-year-old gentleman with history of chronic indwelling Duarte catheter admitted with hematuria found to have acute cystitis. 1. Hematuria ? Secondary to acute cystitis admitted to monitored bed managed with CBI. Plans for patient to follow-up with his primary urologist at [facility] following discharge 2. Acute cystitis with Enterococcus secondary to patient indwelling Duarte catheter ? Patient managed with ceftriaxone. Has apparent allergy to penicillin and ciprofloxacin. Patient started on p.o. Zyvox 3. Anemia ? Secondary to chronic disorder as well as acute blood loss anemia from hematuria monitoring H&H and transfuse if patient becomes symptomatic or hemoglobin falls below 7 4. BPH with lower urinary obstructive symptoms - Patient treated with tamsulosin and finasteride. Patient has chronic indwelling Duarte catheter 5. Hypertension ? Blood pressure controlled, home medications continued with dose adjustment as needed 6. Dyslipidemia ? Patient is on Zetia did continue 7. Coronary artery disease ? Status post CABG. Patient remains on guideline directed medical therapy 8. Paroxysmal A-fib ? Rate controlled on metoprolol patient not a candidate for systemic anticoagulation 9. DVT prophylaxis ? Bilateral SCDs 10. Physical deconditioning ? Requested for PT OT eval and child welfare social worker to assist with discharge planning Time spent in the patient's overall evaluation,decision-making process, review of diagnostic data, adjustment of management, discussion with other providers, nursing nursing and ancillary staff involved in patient's care documentation, 38 Minutes Charges/Coding Visit Charges Inpatient E&M: 88077 Subs Hosp L2
--- NOTE | 2024-06-27 10:09 | TREXTCAR_ITS ---
Diet Diet Order/Speech Therapy: 06/26/24 15:09 Diet: Regular - General Diet Comments: cut meat into bite size pieces Therapies Physical Therapy: Eval and Treat Occupational Therapy: Eval and Treat Problem/Diagnosis (1) UTI (urinary tract infection) due to urinary indwelling Duarte catheter: Status: Acute Code(s): T83.511A - Infection and inflammatory reaction due to indwelling urethral catheter, initial encounter; N39.0 - Urinary tract infection, site not specified (2) Acute blood loss anemia: Status: Acute Code(s): D62 - Acute posthemorrhagic anemia Plan Patient is an 83-year-old gentleman with history of chronic indwelling Duarte catheter admitted with hematuria found to have acute cystitis. 1. Hematuria ? Secondary to acute cystitis admitted to monitored bed managed with CBI. Plans for patient to follow-up with his primary urologist at [facility] following discharge 2. Acute cystitis with Enterococcus secondary to patient indwelling Duarte catheter ? Patient managed with ceftriaxone. Has apparent allergy to penicillin and ciprofloxacin. Patient started on p.o. Zyvox 3. Anemia ? Secondary to chronic disorder as well as acute blood loss anemia from hematuria monitoring H&H and transfuse if patient becomes symptomatic or hemoglobin falls below 7 4. BPH with lower urinary obstructive symptoms - Patient treated with tamsulosin and finasteride. Patient has chronic indwell ing Duarte catheter 5. Hypertension ? Blood pressure controlled, home medications continued with dose adjustment as needed 6. Dyslipidemia ? Patient is on Zetia did continue 7. Coronary artery disease ? Status post CABG. Patient remains on guideline directed medical therapy 8. Paroxysmal A-fib ? Rate controlled on metoprolol patient not a candidate for systemic anticoagulation 9. DVT prophylaxis ? Bilateral SCDs 10. Physical deconditioning ? Requested for PT OT eval and social media senior associate to assist with discharge planning Time spent in the patient's overall evaluation,decision-making process, review of diagnostic data, adjustment of management, discussion with other providers, nursing nursing and ancillary staff involved in patient's care documentation, 38 Minutes Allergies/Procedures Done in Hospital Allergies ciprofloxacin Allergy (Verified 06/25/24 14:37) PT UNSURE OF REACTION clarithromycin (From Biaxin) Allergy (Verified 06/25/24 14:37) PT UNSURE OF REACTION Penicillins Allergy (Verified 06/25/24 14:37) Hives Type of Care/Length of Stay Estimated LOS: Convalescent Care Less Than 30 days Type of Care Needed: Skilled Rehab Potential: Good Prognosis: Good Additional Orders/Day of Discharge Day of Discharge: 06/28/24 Dietary and Speech Recommendations Dietitian Recommendations/Changes: Adjust to regular diet d/t poor appetite. Will order 120ml ensure plus high protein 4x daily with medpass, prefers vanilla or strawberry flavor. Will monitor weight, as available. Reviewed and approved by Kathy Dunham, RD, LD. Discharge Plan Admission Admit Date/Time: 06/25/24 21:31 Attending Provider: Sae Melo Primary Care Provider: [facility],[place] Consulting Providers: Sae Morales; Al Chenug Discharge Orders/Prescriptions Prescriptions: New melatonin 3 mg Tablet 3 mg PO QHS PRN PRN (Reason: Insomnia) Qty: 0 0RF magnesium hydroxide 400 mg/5 mL Suspension 30 ml PO DAILY PRN PRN (Reason: Constipation) Qty: 0 0RF linezolid 600 mg Tablet 600 mg PO BID Qty: 14 0RF alum-mag hydroxide-simeth [Mag-Al Plus Extra Strength] 400-400-40 mg/5 mL Suspension 30 ml PO Q6H PRN PRN (Reason: Gastric Burning) Qty: 0 0RF L.acidoph,saliva-B.bif-S.therm 175 mg Capsule 1 cap PO 2XD Qty: 0 0RF Ensure Plus High Protein 0.08 gram-1.5 kcal/mL Liquid 120 ml PO 4X/DAY Qty: 0 0RF Continued acetaminophen 325 mg capsule 650 mg PO .QID PRN (Reason: pain) albuterol sulfate 90 mcg/actuation HFA aerosol inhaler 2 puff inhalation 4X/DAY PRN PRN (Reason: SOB) finasteride 5 mg tablet 5 mg PO DAILY ezetimibe 10 mg tablet 10 mg PO DAILY lisinopril 10 mg tablet 10 mg PO DAILY metoprolol succinate 25 mg tablet extended release 24 hr 25 mg PO DAILY tamsulosin 0.4 mg capsule 0.4 mg PO DAILY tolterodine [Detrol] 2 mg tablet 2 mg PO DAILY montelukast 10 mg tablet 10 mg PO QHS relugolix 120 mg tablet 120 mg PO DAILY amlodipine 2.5 mg tablet 2.5 mg PO DAILY Referrals / Follow Up: [place] [Primary Care Provider] - Disposition Disposition (needs filled in before D/C Order can be placed): [facility] (1) UTI (urinary tract infection) due to urinary indwelling Duarte catheter Qualifiers: Indwelling urinary catheter type: indwelling urethral catheter Encounter type: initial encounter Qualified Code(s): T83.511A - Infection and inflammatory reaction due to indwelling urethral catheter, initial encounter; N39.0 - Urinary tract infection, site not specified
[2024-06-27] MEDS: Linezolid 600 MG Tablet PO ×2 (10:41→21:04)
--- NOTE | 2024-06-27 12:18 | NURSING ---
Returned phone call to AHRRY Rainey. Updated on POC.
[2024-06-27] MEDS: Albuterol 2.5 MG/3 ML VIAL.NEB. INHALATION (22:37)
[2024-06-28] VITALS (7 sets, daily range): BP systolic 140–160; BP diastolic 56–84; PULSE 64–73; RESP 16–18; TEMP 36.2–36.6; O2SAT 98–99; BMI 21.0
[2024-06-28 06:45] LABS: Absolute Lymphocyte Count 1.04 X10^3/uL (0.83-4.51); Absolute Neutrophil Count 4.6 X10^3/uL (2.0-7.7); Basophil# 0.04 X10^3/uL; Basophil% 0.6 % (0-1); Eosinophil# 0.14 X10^3/uL; Eosinophils% 2.3 % (0-5); Hematocrit 25.4 % (40-54); Hemoglobin 8.1 g/dL (13.0-16.5); Lymphocyte # 1.04 X10^3/ul (0.83-4.51); Lymphocyte % 16.7 % (19-41); Mean Corp Hgb Conc 31.9 g/dL (32-36); Mean Corpuscular Hgb 27.6 pg (27.0-32.0); Mean Corpuscular Volume 86.7 fL (80-94); Mean Platelet Vol. 9.4 fl (6.2-12.0); Monocyte# 0.38 X10^3/uL; Monocyte% 6.1 % (0-10); NRBC Flagged by Analyzer 0 % (0-5); Neutrophil # 4.56 X10^3/uL (2.7-7.7); Neutrophil % 73.5 % (47-70); Platelet Count 269 K/mm3 (150-450); RBC Distribution Width CV 15.6 % (11.6-14.6); RBC Distribution Width SD 49.3 fl (35.1-43.9); Red Blood Count 2.93 M/mm3 (4.6-6.2); White Blood Count 6.2 K/mm3 (4.4-11.0)
[2024-06-28 07:16] LABS: AST(SGOT) 29 U/L (15-37); Alanine Aminotransfer ALT/SGPT 16 U/L (16-61); Albumin, Serum 2.3 g/dL (3.2-5.0); Alkaline Phosphatase 78 U/L (45-117); Anion Gap 5 (5-15); BUN 15 mg/dL (7-18); BUN/Creat Ratio 14.6 RATIO (10-20); Bilirubin, Direct 0.18 mg/dL (0.00-0.30); Calcium,Total 8.6 mg/dL (8.5-10.1); Chloride 106 mmol/L (98-107); Creatinine, Serum 1.03 mg/dL (0.70-1.30); EST Glomerular Filtration Rate 73 mL/min (>60); Est Glom Filt Rate - Afr Amer 88 mL/min (>60); Estimated Creatinine Clearance 51.65 ml/min; Globulin 3.9 g/dL (2.2-4.2); Glucose 87 mg/dL (74-106); Magnesium 2.1 mg/dL (1.6-2.6); Potassium 3.6 mmol/L (3.5-5.1); Protein, Total 6.2 g/dL (6.4-8.2); Sodium Level 137 mmol/L (136-145)
--- NOTE | 2024-06-28 07:41 | PCM.DC.SUM ---
Providers Date of Admission: 06/25/24 Date of Discharge: 06/28/24 Primary Care Physician: [facility] Reason For Visit: ACUTE CYSTITIS WITH HEMATURIA & ALBA DUE Diagnosis Discharge Diagnosis (1) UTI (urinary tract infection) due to urinary indwelling Duarte catheter: Status: Acute Code(s): T83.511A - Infection and inflammatory reaction due to indwelling urethral catheter, initial encounter; N39.0 - Urinary tract infection, site not specified Qualifiers: Encounter type: initial encounter Indwelling urinary catheter type: indwelling urethral catheter Qualified Code(s): T83.511A - Infection and inflammatory reaction due to indwelling urethral catheter, initial encounter; N39.0 - Urinary tract infection, site not specified (2) Acute blood loss anemia: Status: Acute Code(s): D62 - Acute posthemorrhagic anemia Plan Patient is an 83-year-old gentleman with history of chronic indwelling Duarte catheter admitted with hematuria found to have acute cystitis. 1. Hematuria ? Secondary to acute cystitis admitted to monitored bed managed with CBI. Plans for patient to follow-up with his primary urologist at [facility] following discharge 2. Acute cystitis with Enterococcus secondary to patient indwelling Duarte catheter ? Patient managed with ceftriaxone. Has apparent allergy to penicillin and ciprofloxacin. Patient started on p.o. Zyvox 3. Anemia ? Secondary to chronic disorder as well as acute blood loss anemia from hematuria monitoring H&H and transfuse if patient becomes symptomatic or hemoglobin falls below 7 ? Patient hemoglobin on discharge was 8 point 4. BPH with lower urinary obstructive symptoms - Patient treated with tamsulosin and finasteride. Patient has chronic indwelling Duarte catheter 5. Hypertension ? Blood pressure controlled, home medications continued with dose adjustment as needed 6. Dyslipidemia ? Patient is on Zetia did continue 7. Coronary artery disease ? Status post CABG. Patient remains on guideline directed medical therapy 8. Paroxysmal A-fib ? Rate controlled on metoprolol patient not a candidate for systemic anticoagulation 9. DVT prophylaxis ? Bilateral SCDs 10. Physical deconditioning ? Requested for PT OT eval and geriatric social work professor to assist with discharge planning Time spent in the patient's overall evaluation,decision-making process, review of diagnostic data, adjustment of management, discussion with other providers, nursing nursing and ancillary staff involved in patient's care documentation, 38 Minutes Medications at Discharge Home Medications acetaminophen 325 mg capsule 650 mg PO .QID PRN pain 10/25/24 albuterol sulfate 90 mcg/actuation aerosol inhaler 2 puff inhalation 4X/DAY PRN PRN SOB 06/26/24 amlodipine 2.5 mg tablet 2.5 mg PO DAILY BP 06/26/24 ezetimibe 10 mg tablet 10 mg PO DAILY Cholesterol 06/26/24 finasteride 5 mg tablet 5 mg PO DAILY BPH 06/26/24 lisinopril 10 mg tablet 10 mg PO DAILY BP 06/26/24 metoprolol succinate 25 mg tablet,extended release 24 hr 25 mg PO DAILY BP 06/26/24 montelukast 10 mg tablet 10 mg PO QHS breathing 06/26/24 relugolix 120 mg tablet 120 mg PO DAILY Prostate CA 06/26/24 tamsulosin 0.4 mg capsule 0.4 mg PO DAILY BPH 06/26/24 tolterodine 2 mg tablet (Detrol) 2 mg PO DAILY BPH 06/26/24 aluminum-mag hydroxide-simethicone 400 mg-400 mg-40 mg/5 mL oral susp (Mag-Al Plus Extra Strength) 30 ml PO Q6H PRN PRN Gastric Burning #0 mL 06/27/24 linezolid 600 mg tablet 600 mg PO Q12H 10 days #20 tabs 06/27/24 Physical Exam Narrative GENERAL: cooperative HEENT: Atraumatic; normocephalic EYES; Anicteric, Normal Conjunctiva NECK; supple, normal thyroid, RESPIRATORY: Diminished to auscultation CARDIOVASCULAR: Regular S1 S2, GI: soft, normoactive bowel sounds, : Indwelling Duarte catheter EXTREMITIES: No edema, no clubbing, MUSCULOSKELETAL: no muscle wasting NEURO: Awake; no lateralizing signs. SKIN: No Rash PSYCH; Flat affect Weight / BMI Weight Weight: 68.4 kg Body Mass Index (BMI) 21.0 ABG / Lab / Microbiology Data 06/28/24 05:20 06/28/24 05:20 Laboratory: Laboratory Results - last 24 hr 06/25/24 19:29: Crossmatch See Detail 06/28/24 05:20: WBC 6.2, RBC 2.93 L, Hgb 8.1 L, Hct 25.4 L, MCV 86.7, MCH 27.6, MCHC 31.9 L, RDW Std Deviation 49.3 H, RDW Coeff of Jerry 15.6 H, Plt Count 269, MPV 9.4, Immature Gran % (Auto) 0.800, Neut % (Auto) 73.5 H, Lymph % (Auto) 16.7 L, [place] % (Auto) 6.1, Eos % (Auto) 2.3, Baso % (Auto) 0.6, Absolute Neuts (auto) 4.6, Absolute Lymphs (auto) 1.04, Nucleated RBC % 0, Sodium 137, Potassium 3.6, Chloride 106, Carbon Dioxide 26.0, Anion Gap 5, BUN 15, Creatinine 1.03, Estim Creat Clear Calc 51.65, Est GFR (MDRD) Af Amer 88, Est GFR (MDRD) Non-Af 73, BUN/Creatinine Ratio 14.6, Glucose 87, Calcium 8.6, Magnesium 2.1, Total Bilirubin 0.50, Direct Bilirubin 0.18, AST 29, ALT 16, Alkaline Phosphatase 78, Total Protein 6.2 L, Albumin 2.3 L, Globulin 3.9 Microbiology: Microbiology 06/25/24 18:19 Urine, Catheterized Urine Culture - Final Enterococcus faecalis D/C Instructions Discharge Diet: No restrictions Discharge Activity: Return to Normal Activity Call your doctor if you observe: Fever of 101 or Higher, Shortness of breath, Fainting spells and Chest pain Meaningful Use Info Meaningful Use Meaningful Use Diagnoses (Choose all that apply): None applicable Ischemic Stroke Statin Dosing Therapy Reference: STATIN DOSE THERAPY REFERENCE: * Patients > 75 years receive moderate or high dose statin therapy. * Patients 75 years or YOUNGER should receive HIGH intensity statin dose unless contraindicated. You will be required to document reason for non-treatment if statin daily dose does not meet guidelines. HIGH DOSE STATIN THERAPY DAILY Atorvastatin > than or = to 40 mg Rosuvastatin > than or = to 20 mg Amlodipine + Atorvastatin > than or = to 2.5/40 mg Ezetimibe + Simvastatin 10/80 mg Simvastatin 80mg Discharge Plan Admission Admit Date/Time: 06/25/24 21:31 Attending Provider: Sae Melo Primary Care Provider: [facility],[place] Consulting Providers: Sae Morales; Al Cheung Discharge Orders/Prescriptions Prescriptions: New alum-mag hydroxide-simeth [Mag-Al Plus Extra Strength] 400-400-40 mg/5 mL Suspension 30 ml PO Q6H PRN PRN (Reason: Gastric Burning) Qty: 0 0RF linezolid 600 mg tablet 600 mg PO Q12H 10 Days Qty: 20 0RF Continued acetaminophen 325 mg capsule 650 mg PO .QID PRN (Reason: pain) albuterol sulfate 90 mcg/actuation HFA aerosol inhaler 2 puff inhalation 4X/DAY PRN PRN (Reason: SOB) finasteride 5 mg tablet 5 mg PO DAILY ezetimibe 10 mg tablet 10 mg PO DAILY lisinopril 10 mg tablet 10 mg PO DAILY metoprolol succinate 25 mg tablet extended release 24 hr 25 mg PO DAILY tamsulosin 0.4 mg capsule 0.4 mg PO DAILY tolterodine [Detrol] 2 mg tablet 2 mg PO DAILY montelukast 10 mg tablet 10 mg PO QHS relugolix 120 mg tablet 120 mg PO DAILY amlodipine 2.5 mg tablet 2.5 mg PO DAILY Referrals / Follow Up: [facility] [Primary Care Provider] - Within 1 Week Disposition Disposition (needs filled in before D/C Order can be placed): Home Health Service Charges/Coding Visit Charges Inpatient E&M: 14864 Disch Hosp >30min
[2024-06-28] MEDS: Linezolid 600 MG Tablet PO (09:50)
[2024-06-28] MEDS: Ensure Plus High Protein 120 ML LIQUID PO (09:50)
[2024-06-28] MEDS: Lactobacillis Acidophilus 1 CAP PO (09:50)
== END 2024-06-28 13:10 | disposition home health service (06) | DRG 699 ==
LOC: ED 21:10 → PCU 21:56 → MS3 06-26 10:52
PROVIDERS: Family Medicine; Admitting Provider Internal Medicine; Emergency Provider Emergency Medicine; Visit Provider Internal Medicine
DX: T83.511A Infection and inflammatory reaction due to indwelling urethral catheter, initial encounter (principal); N30.01 Acute cystitis with hematuria; D62 Acute posthemorrhagic anemia; B95.2 Enterococcus as the cause of diseases classified elsewhere; I10 Essential (primary) hypertension; I48.0 Paroxysmal atrial fibrillation; M19.90 Unspecified osteoarthritis, unspecified site; I25.10 Atherosclerotic heart disease of native coronary artery without angina pectoris; E78.5 Hyperlipidemia, unspecified; N40.1 Benign prostatic hyperplasia with lower urinary tract symptoms; T45.515A Adverse effect of anticoagulants, initial encounter; Z79.01 Long term (current) use of anticoagulants; Z79.51 Long term (current) use of inhaled steroids; Z79.899 Other long term (current) drug therapy; Z95.1 Presence of aortocoronary bypass graft
CPT/HCPCS: 36415; 51702; 80048; 80053; 80076; 81001; 82607; 82728; 82746; 83540; 83550; 83735; 84100; 84443; 85025; 86850; 86900; 86901; 86920; 86922; 87077; 87086; 87088; 87186; 94640; 94668; 97110; 97116; 97162; 97802; 99285; J7030; J7040; P9016; A4216

== ENCOUNTER 2024-08-23 16:17 | Emergency (ER) | payer OTHER, SELFPAY ==
[2024-08-23] VITALS (7 sets, daily range): BP systolic 146–163; BP diastolic 68–112; PULSE 76–89; RESP 16–22; TEMP 36.1–36.6; O2SAT 94–96; BMI 26.0
--- NOTE | 2024-08-23 16:32 | CT_ITS ---
STUDY: CT BRAIN WITHOUT CONTRAST REASON FOR EXAM: Male, 83 years old. confusion RADIATION DOSAGE (If Supplied By Facility): CTDIvol = ( 44.99 ) mGy, DLP = ( 846.73 ) mGycm TECHNIQUE: Transaxial CT imaging of the brain was performed without administration of intravenous contrast material. Individualized dose optimization techniques were used for this CT. COMPARISON: No relevant priors. FINDINGS: Normal soft tissue structures. Normal calvarium. There is moderate cerebral atrophy with widening of the extra-axial spaces and ventricular dilatation. Normal white matter tracts of the cerebral hemispheres. Normal basal ganglia and thalami. Normal brainstem. Normal cerebellum. There is no intracranial hemorrhage. There are no findings of an acute ischemic infarction. Normal visualized paranasal sinuses. CT/Brain/Head without Contrast IMPRESSION: Senescent changes with no evidence of acute intraparenchymal bleed, mass or ischemia. Electronically Signed: Manuel Turner, at 17:41 EST ,
--- NOTE | 2024-08-23 16:32 | RAD_ITS ---
STUDY: X-RAY CHEST REASON FOR EXAM: Male, 83 years old. cough TECHNIQUE: PA and lateral views of the chest. COMPARISON: None. FINDINGS: Sternotomy wires are midline. Flattening the diaphragms and increased AP diameter consistent with COPD related changes are present. Small layering left effusion with left lower lobe airspace disease present. There is no demonstrated pleural abnormality. Granulomas calcification measuring 1 cm overlies the left lower lobe. Normal size heart. Normal mediastinum and tesfaye. Normal visualized pulmonary arteries. Normal visualized aortic arch and descending thoracic aorta. Normal visualized thoracic spine. Normal visualized ribs, clavicles, and shoulders. There is no demonstrated abnormality of the visualized soft tissue structures of the upper abdomen. RAD/Chest PA and Lateral IMPRESSION: COPD related changes with left lower lung layering effusion and superimposed airspace disease concerning for acute infiltrate in the infectious setting, clinically correlate. Electronically Signed: Manuel Turner, at 17:43 EST ,
--- NOTE | 2024-08-23 16:32 | EKG12_ITS ---
Test Reason : CONFUSED Blood Pressure : */* mmHG Vent. Rate : 73 BPM Atrial Rate : 73 BPM P-R Int : 202 ms QRS Dur : 94 ms QT Int : 416 ms P-R-T Axes : 19 -30 155 degrees QTcB Int : 458 ms Normal sinus rhythm Left axis deviation Left ventricular hypertrophy with repolarization abnormality ( R in aVL , [place] product ) Cannot rule out Septal infarct , age undetermined Abnormal ECG Confirmed by SAMANTHA CARBONE MD ([id number]), editor magazine TATE MARIE ([id number]) on 08/24/2024 8:27:59 AM Referred By: Confirmed By: SAMANTHA CARBONE MD
--- NOTE | 2024-08-23 16:39 | EX.ED.DYSGE1 ---
HPI <GABBI Fulton - Last Filed: 08/23/24 19:54> History of Present Illness Chief Complaint: Duarte C/O Narrative Narrative: Patient is a 83-year-old male with history of BPH, urinary retention,, hypertension, who presents to the [facility] for multiple complaints. Patient does have a long-term indwelling catheter. Per the patient's friend, it has been in for multiple months. Today, the patient had some confusion, the patient has been having lower leg edema, some more shortness of breath and they are here for evaluation. Patient denies any chest pain, denies any shortness of breath at rest. Denies any fever or chills. Patient's last time the Duarte was changed was on August 11, 2024, this was done by radiologist. [facility] <GABBI Fulton - Last Filed: 08/23/24 19:54> [facility] Medical History CKD (chronic kidney disease), stage II Chronic indwelling Duarte catheter BPH with urinary obstruction History of prostate cancer Chronic anemia Chronic hyponatremia HLD (hyperlipidemia) HTN (hypertension) PAF (paroxysmal atrial fibrillation) CAD (coronary artery disease) Home Medications ?Medication ?Instructions ?Recorded ?Last Taken ?Type acetaminophen 325 mg capsule 650 mg PO .QID PRN pain 06/26/24 Unknown History albuterol sulfate 90 mcg/actuation 2 puff inhalation 4X/DAY PRN PRN 06/26/24 Unknown History aerosol inhaler SOB amlodipine 2.5 mg tablet 2.5 mg PO DAILY BP 06/26/24 Unknown History ezetimibe 10 mg tablet 10 mg PO DAILY Cholesterol 06/26/24 Unknown History finasteride 5 mg tablet 5 mg PO DAILY BPH 06/26/24 Unknown History lisinopril 10 mg tablet 10 mg PO DAILY BP 06/26/24 Unknown History metoprolol succinate 25 mg 25 mg PO DAILY BP 06/26/24 Unknown History tablet,extended release 24 hr montelukast 10 mg tablet 10 mg PO QHS breathing 06/26/24 Unknown History relugolix 120 mg tablet 120 mg PO DAILY Prostate CA 06/26/24 Unknown History tamsulosin 0.4 mg capsule 0.4 mg PO DAILY BPH 06/26/24 Unknown History tolterodine 2 mg tablet (Detrol) 2 mg PO DAILY BPH 06/26/24 Unknown History aluminum-mag hydroxide-simethicone 30 ml PO Q6H PRN PRN Gastric 06/27/24 Unknown Rx 400 mg-400 mg-40 mg/5 mL oral susp Burning #0 mL (Mag-Al Plus Extra Strength) linezolid 600 mg tablet 600 mg PO Q12H 10 days #20 tabs 06/27/24 Unknown Rx Allergy/AdvReac Type Severity Reaction Status Date / Time ciprofloxacin Allergy PT UNSURE Verified 08/23/24 16:18 OF REACTION clarithromycin (From Biaxin) Allergy PT UNSURE Verified 08/23/24 16:18 OF REACTION Penicillins Allergy Hives Verified 08/23/24 16:18 Family History (Updated 08/23/24 @ 19:[address] Sadie Guzman MD) Father Hypertension Heart disease CVA (cerebral vascular accident) Mother , Patient notes she had medical history and took medications but he is uncertain of her specific diagnosis history. No problems noted. Surgical History (Updated 08/23/24 @ 19:[address] Sadie Guzman MD) Hx of CABG S/P TURP Social History household members: none Smoking Status: Never smoker alcohol intake: never substance use type: does not use ROS <GABBI Fulton - Last Filed: 08/23/24 19:54> ROS ED ROS Narrative Constitutional: Negative for fever, chills, weight loss, weakness Eyes: Negative for vision loss, vision change, double vision ENT: Negative for any sore throat, ear pain, congestion Cardiovascular: Negative for any chest pain, tightness, palpitations Respiratory: Negative for any sputum production, hemoptysis, dyspnea, dyspnea on exertion, orthopnea. Positive for cough Gastrointestinal: Negative for any abdominal pain, nausea, vomiting, diarrhea, constipation, blood in stool, blood in vomit : Negative for any urinary frequency, dysuria, retention, blood in urine. Positive for purulent drainage from the tip of the penis where the Duarte catheter is Muscle skeletal: Negative for any neck pain, back pain. Positive bilateral lower leg edema Neurological: Negative for any headache, syncope, dizziness. Positive for a feeling of confusion Skin: Negative for any rashes, itching, abrasions, lacerations Psychiatric: Negative for any depression, anxiety, stress, suicidal ideation, homicidal ideation Hematologic: Negative for any excessive bruising, easy bleeding EXAM <GABBI Fulton - Last Filed: 08/23/24 19:54> Physical Exam Narrative Exam Narrative: Vital signs reviewed. Patient is alert and orient x 4. HEET: Head normocephalic atraumatic, TMs clear bilaterally. Posterior pharynx is clear, dry mucous membranes. Nares clear bilaterally. Neck: Supple with no lymphadenopathy or tenderness. No signs of meningismus. Cardiac: Regular rate and rhythm no murmurs gallops or rubs, equal peripheral pulses bilaterally. Respiratory: Bilateral lower lobe wheezes, slight rhonchorous breath sounds. No chest tenderness. Abdomen: Soft, nontender, nondistended. No abdominal bruit or pulsatile masses. No hepatosplenomegaly Extremities: +3 pitting edema to feet, all the way up to his knees. No signs of cellulitis., no signs of gross trauma or deformity. Active full range of motion of all extremities. Neuro: Cranial nerves II through XII intact, no focal neurological deficits. Skin: Clean dry and intact with no rash, purpura, petechiae, vesicles or pustules. Backs/flank: No CVA tenderness, no midline spinal tenderness, no deformity. Psych: Normal mood and affect. No SI, HI or acute psychosis. Const Vital Signs: 08/23/24 16:18 08/23/24 17:55 08/23/24 18:17 Temperature 96.9 F L Temperature Source Temporal Pulse Rate 89 80 76 Respiratory Rate 18 16 22 H Blood Pressure 150/112 H 163/83 H Blood Pressure Mean 124 109 Pulse Ox 95 96 Oxygen Delivery Method Room Air Room Air Positive well nourished and well developed General Appearance ED: well developed <Dr. Carlos Teixeira DO - Last Filed: 08/23/24 19:55> Physical Exam Const Vital Signs: 08/23/24 16:18 08/23/24 17:55 08/23/24 18:17 Temperature 96.9 F L Temperature Source Temporal Pulse Rate 89 80 76 Respiratory Rate 18 16 22 H Blood Pressure 150/112 H 163/83 H Blood Pressure Mean 124 109 Pulse Ox 95 96 Oxygen Delivery Method Room Air Room Air MDM <GABBI Fulton - Last Filed: 08/23/24 19:54> [facility] Lab Data Labs: Laboratory Results - last 24 hr 08/23/24 08/23/24 17:23 18:15 WBC 6.5 RBC 2.71 L Hgb 7.9 L Hct 25.2 L MCV 93.0 MCH 29.2 MCHC 31.3 L RDW Std Deviation 60.5 H RDW Coeff of Jerry 17.9 H Plt Count 242 MPV 9.4 Immature Gran % (Auto) 0.300 Neut % (Auto) 84.6 H Lymph % (Auto) 8.0 L [place] % (Auto) 5.7 Eos % (Auto) 0.9 Baso % (Auto) 0.5 Absolute Neuts (auto) 5.5 Absolute Lymphs (auto) 0.52 L Nucleated RBC % 0 Sodium 136 Potassium 3.7 Chloride 101 Carbon Dioxide 29.0 Anion Gap 6 BUN 22 H Creatinine 0.97 Estim Creat Clear Calc 60.38 Est GFR (MDRD) Af Amer 95 Est GFR (MDRD) Non-Af 79 BUN/Creatinine Ratio 22.8 H Glucose 109 H Calcium 8.1 L Troponin I High Sens 71 B-Natriuretic Peptide 2130.7 H Urine Color Yellow Urine Clarity Sl. Cloudy Urine pH 7.0 Ur Specific [place] 1.010 Urine Protein 30 H Urine Glucose (UA) Normal Urine Ketones Negative Urine Occult Blood 250 H Urine Nitrite Positive H Urine Bilirubin Negative Urine Urobilinogen Normal Ur Leukocyte Esterase 500 H Urine RBC > 100 SEEN Urine WBC >100 SEEN Ur Squamous Epith Cells 0-5 SEEN Urine Bacteria 3+ Hyaline Casts 0-5 SEEN Urine Mucus 0 SEEN Radiography Diagnostic Testing: Clinical Impression(s) from Imaging Studies Brain CT 08/23/24 16:32 IMPRESSION: Senescent changes with no evidence of acute intraparenchymal bleed, mass or ischemia. Electronically Signed: Manuel Turner, at 17:41 EST , Chest X-Ray 08/23/24 16:32 IMPRESSION: COPD related changes with left lower lung layering effusion and superimposed airspace disease concerning for acute infiltrate in the infectious setting, clinically correlate. Electronically Signed: Manuel Turner at 17:43 EST , EKG Normal sinus rhythm, rate of 73 bpm: Attestation: I personally reviewed and interpreted this EKG as follows: Interpretation: Sinus Rhythm Comments: Normal sinus rhythm, left axis deviation, rate of 73 bpm, NC interval 202 ms, QRS duration 94 ms, no acute ST elevation, no acute infarct noted. Treatment and Re-Evaluation :: Differential diagnosis includes however is not limited to: CHF exacerbation, fluid overload, WILDER, UTI Patient appears generally well, vital signs are stable, patient is nontoxic-appearing. Presenting to the emergency department for complaints of confusion, concern for UTI. Patient is alert and orient x 4 at this time. Patient does have a Duarte catheter, we were able to reach out to family, this was changed on August 11, 2024, this is done by urologist and per family is very difficult. This will stay in. Urine sample will be obtained. Basic laboratory values including troponin and BNP will be ordered. Two-view chest x-ray. All radiologic examinations were read, reviewed by the emergency department attending. From these reads, a plan of care will be put in place. CT scan of the brain will be ordered secondary to the confusion earlier today. Patient is not confused at this time. Patient CT scan of the brain showed no acute process. Chest x-ray shows COPD related changes with left lower lung layering effusion and superimposed airspace disease concerning for acute infiltrate in the infectious setting. However I do not believe the patient suffered from any pneumonia believe this is more of fluid overload. Patient CBC shows a chronic anemia with a hemoglobin of 7.9, this has been consistent since June of this year. Patient's chemistry showed normal kidney function 0.97, troponin was negative, BNP was grossly elevated 2130. 40 mg of IV Lasix was given. Urinalysis was positive for infection with 3+ bacteria greater than 100 white blood cells, greater than 100 red blood cells, leukocytes as well as nitrites. Patient was started on IV Rocephin, urine culture obtained. I did speak with the hospitalist, they will come down and evaluate the patient. After speaking with the patient's family they prefer the patient to transfer to [facility] as were all his physicians are. As well as secondary to the pustulant drainage from the Duarte catheter, this might need changed and we do not have urology on-call here. At this time, we will reach out to [facility] for admission/transfer. I spoke with Dr. Post, at [facility], he will be the accepting physician. Currently waiting for a bed. Patient's family made aware. <Dr. Carlos Teixeira, DO - Last Filed: 08/23/24 19:55> [facility] MDM Narrative Medical decision making narrative: Supervisory Physician Note Patient was seen and examined with the Advanced Practice Provider. Nursing notes and vital signs have been reviewed. Pertinent old records have been reviewed. I agree with the essential elements of the JACQUES's history, physical exam, assessment, and plan. The differential diagnosis and management options were discussed with the JACQUES. I participated in determining and agree with the management, procedures, final impression and disposition as documented. See changes noted by me. Please see addendum or separate note for any additional details. 83-year-old male with history of BPH, prostate cancer, chronic urinary retention with chronic Duarte, HTN, CAD presents for evaluation of multiple complaints. Patient states that he has a long-term indwelling catheter. He states that it is difficult to change and therefore it is changed by urology. His friend in the room thought that the catheter had not been changed for multiple months however patient son was called and Duarte was changed on 08/11/2024 by urology. Patient states that his caregiver has seen periodic pus at the urethral meatus over the past week. Patient also endorses bilateral lower extremity edema over the past week. He denies any history of heart failure. [facility] On his medication list he has Lasix crossed out. He states that he does not know why he was on this or when he was taken off of this. Family friend reports that patient had confusion earlier today in which he did not know where he was at. His confusion has since resolved. He endorses some mild shortness of breath. He denies tobacco abuse or history of COPD. He denies any fever, chills, URI symptoms, cough, chest pain, abdominal pain, nausea, vomiting. Physical exam: Gen: A&O x3, NAD Head: Normocephalic, atraumatic Eyes: No sclera icterus, conjunctiva clear, PERRL, EOMI ENT: Moist mucous membranes Neck: Trachea midline CV: RRR, no murmurs, +3 pitting peripheral edema from the bilateral feet to the bilateral knees Resp: Lungs diminished in the bilateral bases, positive wheezing diffusely GI: Abd soft, non-distended, non-tender, no r/r/g : Circumcised penis. No penile tenderness or discharge. No penile or testicular swelling. Normal lie and position of the testicles. No testicular tenderness, masses, or skin changes. No rashes. No palpable hernias. Duarte in place. Clear urine in the Duarte bag. Musc: Full ROM, no deformity Skin: Warm, dry Neuro: Alert, oriented, grossly intact, sensation intact Psych: Cooperative, appropriate mood and affect EKG: Interpreted by me/EM physician: EKG shows normal sinus rhythm with a heart rate of 73. Patient has left ventricular hypertrophy. He has nonspecific ST changes including T wave inversions. I do not have a previous EKG to compare to. Diagnostic: Interpreted by me/EM physician: Chest x-ray with left-sided effusion Patient presents for multiple complaints. No purulence is visualized in the Duarte catheter or at the penile meatus. Patient just had his Duarte catheter changed on 08/11/2024. He states it is very difficult to change and can only be changed by urology. Therefore we will not change Duarte at this time. Will get UA. Laboratory workup including imaging to evaluate for other complaints such as suspected CHF exacerbation. EKG and chest x-ray reviewed. CBC without leukocytosis. Patient has baseline anemia. BMP without WILDER or significant electrolyte abnormality. Troponin 71. BNP elevated at 2130. Patient is in CHF exacerbation. IV Lasix ordered. UA is positive for UTI. Culture sent. Rocephin ordered. CT head without any acute abnormality. Patient will warrant admission for UTI with intermittent confusion as well as CHF exacerbation. He is not on diuretics at home. Patient was discussed with the hospitalist service Dr. Guzman who accepted admission. After she evaluated the patient, given that we do not have urology on-call to change the Duarte, patient's son who is POA elected for transfer [facility] where his urologist is located. [facility] was contacted and accepted transfer. Impression: 1. CHF exacerbation 2. UTI with chronic Duarte catheter 3. Intermittent confusion likely secondary to #2 Lab Data Labs: Laboratory Results - last 24 hr 08/23/24 08/23/24 17:23 18:15 WBC 6.5 RBC 2.71 L Hgb 7.9 L Hct 25.2 L MCV 93.0 MCH 29.2 MCHC 31.3 L RDW Std Deviation 60.5 H RDW Coeff of Jerry 17.9 H Plt Count 242 MPV 9.4 Immature Gran % (Auto) 0.300 Neut % (Auto) 84.6 H Lymph % (Auto) 8.0 L [place] % (Auto) 5.7 Eos % (Auto) 0.9 Baso % (Auto) 0.5 Absolute Neuts (auto) 5.5 Absolute Lymphs (auto) 0.52 L Nucleated RBC % 0 Sodium 136 Potassium 3.7 Chloride 101 Carbon Dioxide 29.0 Anion Gap 6 BUN 22 H Creatinine 0.97 Estim Creat Clear Calc 60.38 Est GFR (MDRD) Af Amer 95 Est GFR (MDRD) Non-Af 79 BUN/Creatinine Ratio 22.8 H Glucose 109 H Calcium 8.1 L Troponin I High Sens 71 B-Natriuretic Peptide 2130.7 H Urine Color Yellow Urine Clarity Sl. Cloudy Urine pH 7.0 Ur Specific [place] 1.010 Urine Protein 30 H Urine Glucose (UA) Normal Urine Ketones Negative Urine Occult Blood 250 H Urine Nitrite Positive H Urine Bilirubin Negative Urine Urobilinogen Normal Ur Leukocyte Esterase 500 H Urine RBC > 100 SEEN Urine WBC >100 SEEN Ur Squamous Epith Cells 0-5 SEEN Urine Bacteria 3+ Hyaline Casts 0-5 SEEN Urine Mucus 0 SEEN Radiography Diagnostic Testing: Clinical Impression(s) from Imaging Studies Brain CT 08/23/24 16:32 IMPRESSION: Senescent changes with no evidence of acute intraparenchymal bleed, mass or ischemia. Electronically Signed: Manuel Turner, at 17:41 EST , Chest X-Ray 08/23/24 16:32 IMPRESSION: COPD related changes with left lower lung layering effusion and superimposed airspace disease concerning for acute infiltrate in the infectious setting, clinically correlate. Electronically Signed: Manuel Turner at 17:43 EST , Discharge Plan Triage Chief Complaint: Duarte C/O ED Midlevel Provider: Connor Hung ED Provider: Carlos Teixeira Dx/Rx/DC Orders Clinical Impression: Acute metabolic encephalopathy, History of BPH, Acute UTI, Fluid overload, Acute exacerbation of CHF (congestive heart failure) [facility] Disposition Disposition: Acute Care Hospital Discharge Location: [facility]
[2024-08-23 17:30] LABS: Absolute Lymphocyte Count 0.52 X10^3/uL (0.83-4.51); Absolute Neutrophil Count 5.5 X10^3/uL (2.0-7.7); Basophil# 0.03 X10^3/uL; Basophil% 0.5 % (0-1); Eosinophil# 0.06 X10^3/uL; Eosinophils% 0.9 % (0-5); Hematocrit 25.2 % (40-54); Hemoglobin 7.9 g/dL (13.0-16.5); Lymphocyte # 0.52 X10^3/ul (0.83-4.51); Mean Corp Hgb Conc 31.3 g/dL (32-36); Mean Corpuscular Hgb 29.2 pg (27.0-32.0); Mean Platelet Vol. 9.4 fl (6.2-12.0); Monocyte# 0.37 X10^3/uL; Monocyte% 5.7 % (0-10); NRBC Flagged by Analyzer 0 % (0-5); Neutrophil # 5.52 X10^3/uL (2.7-7.7); Neutrophil % 84.6 % (47-70); POSITIVE DIFFERENTIAL YES; Platelet Count 242 K/mm3 (150-450); RBC Distribution Width CV 17.9 % (11.6-14.6); RBC Distribution Width SD 60.5 fl (35.1-43.9); Red Blood Count 2.71 M/mm3 (4.6-6.2); White Blood Count 6.5 K/mm3 (4.4-11.0)
[2024-08-23] MEDS: Albuterol 2.5 MG/3 ML VIAL.NEB. INHALATION (17:50)
[2024-08-23] MEDS: Ipratropium/Albuterol Sulfate 3 ML AMPUL.NEB INHALATION (17:50)
[2024-08-23 18:17] LABS: Anion Gap 6 (5-15); BUN 22 mg/dL (7-18); BUN/Creat Ratio 22.8 RATIO (10-20); Calcium,Total 8.1 mg/dL (8.5-10.1); Chloride 101 mmol/L (98-107); Creatinine, Serum 0.97 mg/dL (0.70-1.30); EST Glomerular Filtration Rate 79 mL/min (>60); Est Glom Filt Rate - Afr Amer 95 mL/min (>60); Estimated Creatinine Clearance 60.38 ml/min; Glucose 109 mg/dL (74-106); Potassium 3.7 mmol/L (3.5-5.1); Sodium Level 136 mmol/L (136-145); Troponin-I HS 71 pg/mL (3.0-78.0)
[2024-08-23 18:20] LABS: BNP,B-Type NATRIURETIC PEPTIDE 2130.7 pg/mL (0-100)
[2024-08-23 18:21] LABS: Mucous, Urine 0 SEEN /hpf (<or=2+)
[2024-08-23 18:23] LABS: Color, Urine Yellow (Yellow); Glucose, Dipstick Normal (Normal); Ketone-Dipstick Negative (Negative); Leukocyte Esterase-Dipstick 500 /ul (Negative); Nitrite-Dipstick Positive (Negative); Occult Blood-Urine 250 /ul (Negative); Protein-Dipstick 30 mg/dl (Negative); Urine Bilirubin Dipstick Negative (Negative); Urine Clarity Sl. Cloudy (Clear); Urine Urobilinogen Normal (Normal)
[2024-08-23 18:49] LABS: Bacteria 3+ /hpf (None Seen); Hyaline Cast 0-5 SEEN /lpf (0-5); Red Blood Cells-Urine > 100 SEEN /hpf (0-5); Squamous Epithelial Cells - UA 0-5 SEEN /hpf (0-5); White Blood Cells >100 SEEN /hpf (0-5)
[2024-08-23] MEDS: Furosemide 40 MG/4 ML Vial IV (19:27)
--- NOTE | 2024-08-23 19:27 | HP.PCM.HOS_ITS ---
HPI - General General Date of Admission: 08/23/24 Date of Service: 08/23/24 Chief Complaint: Confusion, fatigue, purulent output from lam, worsening BL LE swelling. HPI Narrative The patient is an 83 y/o M [facility] w/ PMHx: CKD stage II based on GFR trending, Chronic Hyponatremia, PAF previously on Eliquis with per chart significant issues with acute blood loss anemia secondary to hematuria given frequent UTIs, Chronic anemia, Hx Prostate CA s/p TURP, BPH w/ chronic urinary retension with chronic indwelling lam catheter with most recent complicated urinary tract infection associated with Lam catheter noted 06/2024 with Enterococcus treated at that time with oral linezolid given allergy history, CAD s/p CABG, HTN, HLD who presents to the [facility] ED on 08/23/2024 with concern for confusion, worsening lower extremity swelling as well as dyspnea prompting ED evaluation. Patient's Lam catheter was previously changed 08/11/2024 per urology/radiology and is difficult to change. In the ED there is obvious purulent drainage from the tip of the penis at the site of the Lam catheter insertion. Workup in the ED included T96.9, heart rate 89, BP 150/112, respiratory rate 18, 95% on room air, EKG with sinus rhythm with no acute evidence of ischemia, CBC with WBC 6.5, hemoglobin 7.9, MCV 93, platelet 242 without marked shift with lymphopenia, BMP with BUN/creatinine 22/0.97, GFR 79,, glucose 109 otherwise not marked appearing, troponin 71, BNP 2130.7, CT brain with senescent changes with no acute intracranial findings, chest x-ray with COPD type changes with left lower lung layering effusion and superimposed airspace disease concerning for possible acute infiltrate, urinalysis with cloudy appearing urine, specific every 1.010, protein 30, occult blood 250, nitrate positive, leukocyte esterase 500, urine RBCs greater than 100, urine WBCs greater than 100, 3+ urine bacteria, urine culture pending per ED. In the ED patient ministered DuoNeb and albuterol therapy, Lasix 40 mg IV x 1 as well as Rocephin 1 g IV x 1. [facility] Medical History CKD (chronic kidney disease), stage II Chronic indwelling Lam catheter BPH with urinary obstruction History of prostate cancer Chronic anemia Chronic hyponatremia HLD (hyperlipidemia) HTN (hypertension) PAF (paroxysmal atrial fibrillation) CAD (coronary artery disease) Home Medications ?Medication ?Instructions ?Recorded ?Last Taken ?Type acetaminophen 325 mg capsule 650 mg PO .QID PRN pain 06/26/24 Unknown History albuterol sulfate 90 mcg/actuation 2 puff inhalation 4X/DAY PRN PRN 06/26/24 Unknown History aerosol inhaler SOB amlodipine 2.5 mg tablet 2.5 mg PO DAILY BP 06/26/24 Unknown History ezetimibe 10 mg tablet 10 mg PO DAILY Cholesterol 06/26/24 Unknown History finasteride 5 mg tablet 5 mg PO DAILY BPH 06/26/24 Unknown History lisinopril 10 mg tablet 10 mg PO DAILY BP 06/26/24 Unknown History metoprolol succinate 25 mg 25 mg PO DAILY BP 06/26/24 Unknown History tablet,extended release 24 hr montelukast 10 mg tablet 10 mg PO QHS breathing 06/26/24 Unknown History relugolix 120 mg tablet 120 mg PO DAILY Prostate CA 06/26/24 Unknown History tamsulosin 0.4 mg capsule 0.4 mg PO DAILY BPH 06/26/24 Unknown History tolterodine 2 mg tablet (Detrol) 2 mg PO DAILY BPH 06/26/24 Unknown History aluminum-mag hydroxide-simethicone 30 ml PO Q6H PRN PRN Gastric 06/27/24 Unknown Rx 400 mg-400 mg-40 mg/5 mL oral susp Burning #0 mL (Mag-Al Plus Extra Strength) linezolid 600 mg tablet 600 mg PO Q12H 10 days #20 tabs 06/27/24 Unknown Rx Allergy/AdvReac Type Severity Reaction Status Date / Time ciprofloxacin Allergy PT UNSURE Verified 08/23/24 16:18 OF REACTION clarithromycin (From Biaxin) Allergy PT UNSURE Verified 08/23/24 16:18 OF REACTION Penicillins Allergy Hives Verified 08/23/24 16:18 Family History (Updated 08/23/24 @ 19:[address] Sadie Guzman MD) Father Hypertension Heart disease CVA (cerebral vascular accident) Mother , Patient notes she had medical history and took medications but he is uncertain of her specific diagnosis history. No problems noted. Surgical History (Updated 08/23/24 @ 19:[address] Sadie Guzman MD) Hx of CABG S/P TURP Social History household members: none Smoking Status: Never smoker alcohol intake: never substance use type: does not use ROS Review of Systems ROS Unobtainable: due to encephalopathy Vital Signs Vital Signs Vital Signs: 08/23/24 16:18 08/23/24 17:55 08/23/24 18:17 Temperature 96.9 F L Temperature Source Temporal Pulse Rate 89 80 76 Respiratory Rate 18 16 22 H Blood Pressure 150/112 H 163/83 H Blood Pressure Mean 124 109 Pulse Ox 95 96 Oxygen Delivery Method Room Air Room Air 08/23/24 19:18 Temperature 98 F Temperature Source Pulse Rate 76 Respiratory Rate 22 H Blood Pressure 163/83 H Blood Pressure Mean 109 Pulse Ox 96 Oxygen Delivery Method Weight Weight: 186 lb 11.704 oz Body Mass Index (BMI) 26.0 Physical Exam Narrative Physical Examination: General: Awake, alert, oriented to self and some recent events the patient does have underlying memory impairment and came in very confused, improving, seated upright in ED bed, fatigued appearing. Skin: Normal color, normal turgor, no icterus, no cyanosis except occasional stage ecchymoses, abrasion.. HEENT: AT/NC, EOMI, PERRLA, MMM, no carotid bruits, + JVD noted. Lungs: Diminished, greater bases, mildly increased respiratory rate but no distress, very minimal rales at bases, no marked rhonchi or wheezing. Heart: Regular rate and rhythm; no gallop, rub audible. Abdomen: Soft, NTTP except mild suprapubic discomfort with palpation, ND, mildly hyperactive BS, no H appreciated SM. Extremities: No cyanosis, no clubbing, significant pedal to knee 3-4+ pitting edema. Neurological: Awake, alert, oriented to self and some recent events the patient does have underlying memory impairment and came in very confused, improving, cognitive function not baseline intact; pupils equally reactive to light and accommodation, cranial nerves grossly normal, moving all 4 extremities, no focal deficits, strength moderately to severely globally decreased Psychiatric: Affect appears flat, fatigued, no acute evidence of depressive or anxiety feelings. Results Lab / Micro Data 08/23/24 17:23 08/23/24 17:23 Labs: Laboratory Results - last 24 hr 08/23/24 17:23: WBC 6.5, RBC 2.71 L, Hgb 7.9 L, Hct 25.2 L, MCV 93.0, MCH 29.2, MCHC 31.3 L, RDW Std Deviation 60.5 H, RDW Coeff of Jerry 17.9 H, Plt Count 242, MPV 9.4, Immature Gran % (Auto) 0.300, Neut % (Auto) 84.6 H, Lymph % (Auto) 8.0 L, [place] % (Auto) 5.7, Eos % (Auto) 0.9, Baso % (Auto) 0.5, Absolute Neuts (auto) 5.5, Absolute Lymphs (auto) 0.52 L, Nucleated RBC % 0, Sodium 136, Potassium 3.7, Chloride 101, Carbon Dioxide 29.0, Anion Gap 6, BUN 22 H, Creatinine 0.97, Estim Creat Clear Calc 60.38, Est GFR (MDRD) Af Amer 95, Est GFR (MDRD) Non-Af 79, BUN/Creatinine Ratio 22.8 H, Glucose 109 H, Calcium 8.1 L, Troponin I High Sens 71, B-Natriuretic Peptide 2130.7 H 08/23/24 18:15: Urine Color Yellow, Urine Clarity Sl. Cloudy, Urine pH 7.0, Ur Specific [place] 1.010, Urine Protein 30 H, Urine Glucose (UA) Normal, Urine Ketones Negative, Urine Occult Blood 250 H, Urine Nitrite Positive H, Urine Bilirubin Negative, Urine Urobilinogen Normal, Ur Leukocyte Esterase 500 H, Urine RBC > 100 SEEN, Urine WBC >100 SEEN, Ur Squamous Epith Cells 0-5 SEEN, Urine Bacteria 3+, Hyaline Casts 0-5 SEEN, Urine Mucus 0 SEEN Imaging Radiology Impression Brain CT 08/23/24 16:32 IMPRESSION: Senescent changes with no evidence of acute intraparenchymal bleed, mass or ischemia. Electronically Signed: Manuel Turner, at 17:41 EST , Chest X-Ray 08/23/24 16:32 IMPRESSION: COPD related changes with left lower lung layering effusion and superimposed airspace disease concerning for acute infiltrate in the infectious setting, clinically correlate. Electronically Signed: Manuel Turner, at 17:43 EST , Assessment & Plan Assessment/Plan (1) Acute UTI: (2) Acute metabolic encephalopathy: PLAN: Plan The patient is an 83 y/o M [facility] w/ PMHx: CKD stage II based on GFR trending, Chronic Hyponatremia, PAF previously on Eliquis with per chart significant issues with acute blood loss anemia secondary to hematuria given frequent UTIs, Chronic anemia, Hx Prostate CA s/p TURP, BPH w/ chronic urinary retension with chronic indwelling lam catheter with most recent complicated urinary tract infection associated with Lam catheter noted 06/2024 with Enterococcus treated at that time with oral linezolid given allergy history, CAD s/p CABG, HTN, HLD who presents to the [facility] ED on 08/23/2024 with concern for confusion, worsening lower extremity swelling as well as dyspnea prompting ED evaluation. #1. Acute Encephalopathy secondary to Acute Complicated Urinary Tract Infection secondary to chronic indwelling lam catheter with history of prostate cancer status post TURP and BPH with obstructive pathology: Given #2 with concern for HF exacerbation also will admit to PCU, UA upon ED evaluation remarkable, pending UCx, based on previous urine culture history noted with Enterococcus will initiate and maintain on IV vancomycin and IV cefepime, continue IVFs, monitor I/Os, alter antibiotic therapies once obtained sensitivities and speciation. Unfortunately given difficulty with catheter change out usually by urology unable to have this done at this time which certainly is risk as ideally this would be changed given infectious presentation but there is currently no urologist available until 09/08/2024 thus discussions ongoing with family to option of not admitted to [facility] and transfer to tertiary with urology versus setting up [facility] to occur in a timeline manner. Will continue patient home Flomax and finasteride regimen. Bld cx x 2 obtained in the ED. PT/OT/case management consult for discharge planning. #2. Questionable left lower lung infiltrate/community-acquired pneumonia with more Notably concern for volume overload/Acute HF exacerbation unclear type: CXR in the ED w/ COPD type changes with left lower lung layering effusion and questionable superimposed airspace disease concerning for infiltrate but no overt presentation pneumonia type symptoms however patient does have worsening lower extremity swelling and significantly elevated BNP. Will initiate supplemental oxygen if necessary however currently remained on room air, will place on ATC budesonide, PRN albuterol, lower suspicion given #1 as noted but on abx as noted above regardless, HOB, IS parameters w/ pending sputum cultures, full respiratory viral panel and urine antigens. Will maintain on telemetry, cycle cardiac enzymes, initiate very judicious pulse dose Lasix given infectious presentation concurrently, will maintain on aspirin, ezetimibe, hypertensive regimen as able with metoprolol and lisinopril, place snug siva wraps with lower extremity elevation, will request echocardiogram, will obtain magnesium and TSH levels. #3. Chronic Kidney Disease Stage II based on previous GFR trend: Admission BUN/Cr 22/0.97, GFR 79, baseline renal function most recently noted 0.8-1.0 with GFR consistent with stage II, repeat BMP in AM. #4. Chronic hyponatremia: Noted history, on chronic salt tablets per previous history report, clarifying medication, [facility], admission sodium 136 however in the setting of overload as noted thus for this patient elevated above what his normal would be, will continue to trend CMP. #5. CAD: Status post previous CABG, will continue aspirin, not on statin therapy is noted but on ezetimibe, continue metoprolol and lisinopril home regimen. #6. PAF: We will continue patient on metoprolol regimen, previously had been on Eliquis but history of significant hematuria with UTIs with acute blood loss anemia thus this was discontinued, d will continue only baby aspirin and metoprolol home regimen. #7. Hypertension: Continue home regimen including amlodipine, lisinopril, metoprolol with hold as needed pending BP, PRN hydralazine. #8. Hyperlipidemia: We will continue patient home ezetimibe home regimen, not on statin therapy. #9. Chronic normocytic anemia: Admission hemoglobin 7.9, MCV 93, baseline hemoglobin 7-8 range, stable, continue to trend. #10. Allergic rhinitis: We will continue patient home montelukast regimen. #11. DVT prophylaxis: SCDs given concern for potential hematuria in the setting of #1. #12. CODE status: Patient HCPOA is his sons, living will is not in place. Discussed CODE status at length including difference between FULL code, DNR-CCA and DNR-CC status. Following discussions about the differences in these status, requested Full Code status. Advanced Care Planning Face to Face Time: 16 minutes.
[2024-08-23] MEDS: Ceftriaxone 1 GM/50 ML BAG IV (19:28)
== END 2024-08-23 22:40 | disposition short-term general hospital (02) ==
LOC: ED 17:23 → PCU 19:42
PROVIDERS: Nurse Practitioner; Emergency Provider Surgery; Visit Provider Surgery
DX: I13.0 Hypertensive heart and chronic kidney disease with heart failure and stage 1 through stage 4 chronic kidney disease, or unspecified chronic kidney disease (principal); I50.9 Heart failure, unspecified; J44.9 Chronic obstructive pulmonary disease, unspecified; I48.0 Paroxysmal atrial fibrillation; N39.0 Urinary tract infection, site not specified; G93.41 Metabolic encephalopathy; N40.1 Benign prostatic hyperplasia with lower urinary tract symptoms; R33.8 Other retention of urine; N18.2 Chronic kidney disease, stage 2 (mild); D64.9 Anemia, unspecified; E78.5 Hyperlipidemia, unspecified; I25.10 Atherosclerotic heart disease of native coronary artery without angina pectoris; Z96.0 Presence of urogenital implants; Z88.0 Allergy status to penicillin; Z88.1 Allergy status to other antibiotic agents; Z95.1 Presence of aortocoronary bypass graft; Z85.46 Personal history of malignant neoplasm of prostate; Z79.899 Other long term (current) drug therapy
CPT/HCPCS: 70450; 71046; 80048; 81001; 83880; 84484; 85025; 87077; 87086; 87088; 87186; 93005; 94640; 96365; 96375; 99284; A4216; J1940